=== PATIENT | male | born 1935 | race Caucasian/White ===

== ENCOUNTER 2016-12-15 10:53 | Emergency (ER) | payer MEDICARE, BC ==
--- NOTE | 2016-12-15 12:22 | EDM.PDOC ---
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 He has redness in the upper lid area. There appears to be a small pustule on the upper lid like a stye developing. Onset: Gradual Duration: Day(s): Location: Reports: Face Associated Symptoms: Reports: No Other Symptoms Eye Pain Score (Numeric/FACES): 2 - Related Data Allergies Allergy/AdvReac Type Severity Reaction Status Date / Time No Known Allergies Allergy Verified 12/15/16 11:55 Home Meds: Home Meds Levothyroxine [Synthroid] 88 mcg PO ACBREAKFAST 12/15/16 [History] predniSONE [Prednisone] 7.5 mg PO DAILY 12/15/16 [History] Past Medical History HEENT History: Reports: Cataract Respiratory History: Reports: Pulmonary Fibrosis Genitourinary History: Reports: Other (See Below) Other Genitourinary History: Prostate cancer Musculoskeletal History: Reports: Fracture Other Endocrine/Metabolic History: parotid surgery 1970 & 2001 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 - Past Surgical History HEENT Surgical History: Reports: Cataract Surgery GI Surgical History: Reports: Hernia, Inguinal Male Surgical History: Reports: Prostatectomy Social & Family History - Tobacco Use Smoking Status *Q: Never Smoker Second Hand Smoke Exposure: No - Caffeine Use Caffeine Use: Reports: Coffee, Tea - Alcohol Use Days Per Week of Alcohol Use: 0 - Recreational Drug Use Recreational Drug Use: No ED ROS GENERAL - Review of Systems Review Of Systems: See Below Constitutional: Reports: No Symptoms HEENT: Reports: Other ( swelling of the upper lid of the left eye. There appears to be a cellulitis of the upper lid and a possible stye developing. ) Respiratory: Reports: No Symptoms Cardiovascular: Reports: No Symptoms Endocrine: Reports: No Symptoms GI/Abdominal: Reports: No Symptoms : Reports: No Symptoms ED EXAM GENERAL W FULL EYE - Physical Exam Exam: See Below Text/Narrative:: pt arrived with swellin of the left upper lid and slight tenderness, He is on ppredisone and is concerned about infection. Exam Limited By: No Limitations General Appearance: Alert, Anxious, Other (pt has swelling of the lef upper lid. he may be forming a stye.) Ears: Normal TMs Nose: Normal Inspection Throat/Mouth: Normal Inspection Head: Atraumatic Neck: Normal Inspection Course - Vital Signs Last Recorded V/S: Last Vital Signs Temp 37.3 C 12/15/16 11:53 Pulse 84 12/15/16 11:53 Resp 14 12/15/16 11:53 BP 142/74 H 12/15/16 11:53 Pulse Ox 96 12/15/16 11:53 - Orders/Labs/Meds Labs: Laboratory Tests 12/15/16 12/15/16 Range/Units 12:25 12:25 WBC 4.7 (4.5-11.0) K/uL RBC 4.43 (4.30-5.90) M/uL Hgb 13.9 (12.0-15.0) g/dL Hct 42.5 (40.0-54.0) % MCV 96 (80-98) fL MCH 31 (27-31) pg MCHC 33 (32-36) % Plt Count 110 L (150-400) K/uL Add Manual Diff Yes Neutrophils % (Manual) 34 L (36-66) % Band Neutrophils % 3 L (5-11) % Lymphocytes % (Manual) 42 (24-44) % Monocytes % (Manual) 21 H (2-6) % Poikilocytosis Rare Stomatocytes Few Sodium 138 L (140-148) mmol/L Potassium 4.5 (3.6-5.2) mmol/L Chloride 103 (100-108) mmol/L Carbon Dioxide 31 (21-32) mmol/L Anion Gap 8.5 (5.0-14.0) mmol/L BUN 15 (7-18) mg/dL Creatinine 1.0 (0.8-1.3) mg/dL Est Cr Clr Drug Dosing TNP Estimated GFR (MDRD) > 60 (>60) Glucose 143 H (74-106) mg/dL Calcium 8.9 (8.5-10.1) mg/dL Departure - Departure Time of Disposition: 13:14 Disposition: Home, Self-Care 01 Condition: Fair Clinical Impression: Cellulitis of left eyelid - Discharge Information Referrals: Yannick Mejia MD [Primary Care Provider] - Forms: ED Department Discharge Care Plan Goals: moist warm packs to left eye frequently, keflex 500mg tid, rtc if increased problems.
[2016-12-15 14:02] VITALS: BP 142/74
== END 2016-12-15 13:10 | disposition home or self-care (01) ==
LOC: JP.ED 10:53
DX: H00.034 Abscess of left upper eyelid (principal); Z90.89 Acquired absence of other organs; Z98.49 Cataract extraction status, unspecified eye; Z79.899 Other long term (current) drug therapy
CPT/HCPCS: 36415; 80048; 85025; 99283; 99284

== ENCOUNTER 2019-01-20 13:37 | Emergency (ER) | payer MEDICARE, BC ==
[2019-01-20 14:56] VITALS: BP 152/80; PULSE 90
[2019-01-20] MEDS ORDERED: Oxymetazoline 0.05% Nasal Spray 30 ML Bottle NAS ONE (15:19)
--- NOTE | 2019-01-20 15:22 | EDM.PDOC ---
ED HPI GENERAL MEDICAL PROBLEM - General Chief Complaint: ENT Problem Stated Complaint: NOSE BLEED ALL MORNING Time Seen by Provider: 01/20/19 15:22 Source of Information: Reports: Patient History Limitations: Reports: No Limitations - History of Present Illness INITIAL COMMENTS - FREE TEXT/NARRATIVE: pt has had some bleeding from the rt nare for the past 4-5 hours. He has a history of low platlets because he is on chemo. He has a known mucoepidermal tumor. Onset: Today, Other (lasted about 4-5 hours. ) Duration: Hour(s): Location: Reports: Face Associated Symptoms: Reports: Other (pt had a nose bleed that would not stop. ) - Related Data Allergies Allergy/AdvReac Type Severity Reaction Status Date / Time No Known Allergies Allergy Verified 01/20/19 14:37 Home Meds: Home Meds Levothyroxine [Synthroid] 88 mcg PO ACBREAKFAST 12/15/16 [History] predniSONE [Prednisone] 7.5 mg PO DAILY 12/15/16 [History] Past Medical History HEENT History: Reports: Cataract Respiratory History: Reports: Pulmonary Fibrosis Genitourinary History: Reports: Other (See Below) Other Genitourinary History: Prostate cancer Musculoskeletal History: Reports: Fracture Other Endocrine/Metabolic History: parotid surgery 1970 & 2001 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 - Past Surgical History HEENT Surgical History: Reports: Cataract Surgery GI Surgical History: Reports: Hernia, Inguinal Male Surgical History: Reports: Prostatectomy Social & Family History - Tobacco Use Smoking Status *Q: Never Smoker - Caffeine Use Caffeine Use: Reports: Coffee, Tea ED ROS ENT - Review of Systems Review Of Systems: See Below Constitutional: Reports: Other (pt has a nose bleed. ) HEENT: Reports: Nosebleed Respiratory: Reports: No Symptoms Cardiovascular: Reports: No Symptoms Endocrine: Reports: No Symptoms GI/Abdominal: Reports: No Symptoms : Reports: No Symptoms Musculoskeletal: Reports: No Symptoms Skin: Reports: No Symptoms ED EXAM, ENT - Physical Exam Exam: See Below Text/Narrative:: pt arrived with a history of bleeding from the rt nare for about 5 hours. He had the nasal clamp on and when it was taken off there was very little bleeding. Exam Limited By: No Limitations General Appearance: Alert, Mild Distress Ears: Normal TMs Nose: Other ( clamp was removed and there was very little bleeding present. The clots were cleaned out and it was sprayed with afrin. He was watched and he did not have further bleeding. ) Mouth/Throat: Normal Inspection Head: Atraumatic Neck: Normal Inspection Respiratory/Chest: No Respiratory Distress Cardiovascular: Regular Rate, Rhythm Course - Vital Signs Last Recorded V/S: Last Vital Signs Temp 36.1 C 01/20/19 16:22 Pulse 90 01/20/19 16:22 Resp 16 01/20/19 16:22 BP 152/80 H 01/20/19 16:22 Pulse Ox 96 01/20/19 16:22 - Orders/Labs/Meds Labs: Laboratory Tests 01/20/19 01/20/19 01/20/19 Range/Units 15:30 15:30 15:30 WBC 78.9 H* (4.5-11.0) K/uL RBC 3.77 L (4.30-5.90) M/uL Hgb 11.4 L D (12.0-15.0) g/dL Hct 36.5 L (40.0-54.0) % MCV 97 (80-98) fL MCH 30 (27-31) pg MCHC 31 L (32-36) % Plt Count 66 L (150-400) K/uL Add Manual Diff Yes Neutrophils % (Manual) 52 (36-66) % Band Neutrophils % 12 H (5-11) % Lymphocytes % (Manual) 11 L (24-44) % Monocytes % (Manual) 25 H (2-6) % Polychromasia APTT 31.7 (27.0-36.0) sec Sodium 138 L (140-148) mmol/L Potassium 4.0 (3.6-5.2) mmol/L Chloride 98 L (100-108) mmol/L Carbon Dioxide 30 (21-32) mmol/L Anion Gap 14.0 (5.0-14.0) mmol/L BUN 19 H (7-18) mg/dL Creatinine 1.5 H (0.8-1.3) mg/dL Est Cr Clr Drug Dosing 39.20 mL/min Estimated GFR (MDRD) 45 L (>60) Glucose 154 H (74-106) mg/dL Calcium 9.9 (8.5-10.1) mg/dL Total Bilirubin 0.9 (0.2-1.0) mg/dL AST 156 H (15-37) U/L ALT 40 (12-78) U/L Alkaline Phosphatase 458 H (46-116) U/L Total Protein 8.5 H (6.4-8.2) g/dL Albumin 3.5 (3.4-5.0) g/dL Globulin 5.0 H (2.3-3.5) g/dL Albumin/Globulin Ratio 0.7 L (1.2-2.2) Meds: Medications Discontinued Medications Generic Name Dose Route Start Last Admin Trade Name Freq PRN Reason Stop Dose Admin Oxymetazoline HCl 1 ml 01/20/19 15:19 01/20/19 15:25 Nasal Decongestant [place] JIMMY 01/20/19 15:20 1 spray ONETIME ONE Administration - Re-Assessments/Exams Free Text/Narrative Re-Assessment/Exam: 01/20/19 16:21 pt had recent shots in [place] to stimulate his marrow. He was found to have a wbc of 78,000. His platlets were 60. He will use the afrin regularly for 3 days then stop. Departure - Departure Time of Disposition: 16:10 Disposition: Home, Self-Care 01 Condition: Fair Clinical Impression: Nosebleed, Temporary low platelet count - Discharge Information Instructions: Nosebleed, [id number] Referrals: Yannick Mejia MD [Primary Care Provider] - Forms: ED Department Discharge Care Plan Goals: cool mist humidifier at the bedside, avoid working in todd areas. Afrin nasal spray tid for the next 3 days then stop. send a copy of his lab work with him so he can call his oncologist.
== END 2019-01-20 16:26 | disposition home or self-care (01) ==
LOC: JP.ED 13:37
DX: R04.0 Epistaxis (principal); D69.6 Thrombocytopenia, unspecified; Z79.899 Other long term (current) drug therapy
CPT/HCPCS: 36415; 80053; 85025; 85730; 99283; A9270; 99282

== ENCOUNTER 2021-01-15 12:03 | Emergency (ER) | payer MEDICARE, BC ==
[2021-01-15] MEDS ORDERED: Sodium Chloride 0.9% 10 ML Syringe FLUSH PRN (12:36)
--- NOTE | 2021-01-15 12:43 | EDM.PDOC ---
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 Surgery was not advised this last time so he has been managed non-surgically. He is not on any anticoagulants. He has coughed up some clots in the past, but today he brought up a lot of fresh blood that is much more than ever before. He is unable to open his mouth more than a little due to his original surgery on that L parotid justina or. His breathing is now the same as usual without SOB. His CA tx's were at [facility] in [place]. Onset: Today, Sudden Onset Date: 01/15/21 Duration: Minutes: Location: Reports: Neck (? throat) Quality: Reports: Other (no pain reported) Severity: Severe Improves with: Reports: Other (time) Worsens with: Reports: Other (unknown) Context: Reports: Other (see HPI) Associated Symptoms: Reports: Malaise. 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: Reports: Other (see below) (none) - Related Data Allergies Allergy/AdvReac Type Severity Reaction Status Date / Time No Known Allergies Allergy Verified 01/15/21 12:09 Home Meds: Home Meds Levothyroxine [Synthroid] 88 mcg PO ACBREAKFAST 12/15/16 [History] predniSONE [Prednisone] 7.5 mg PO DAILY 12/15/16 [History] Past Medical History HEENT History: Reports: Cataract Respiratory History: Reports: Pulmonary Fibrosis Gastrointestinal History: Reports: Chronic Constipation Genitourinary History: Reports: Other (See Below) Other Genitourinary History: Prostate cancer Musculoskeletal History: Reports: Fracture Other Endocrine/Metabolic History: parotid surgery 1970 & 2001 Hematologic History: Reports: Other (See Below) 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 Oncologic (Cancer) History: Reports: Prostate, Other (See Below) - Past Surgical History Head Surgeries/Procedures: Reports: None HEENT Surgical History: Reports: Cataract Surgery, Other (See Below) Other HEENT Surgeries/Procedures: radiation to throat Respiratory Surgical History: Reports: None GI Surgical History: Reports: Hernia, Inguinal Male Surgical History: Reports: Prostatectomy Endocrine Surgical History: Reports: None Musculoskeletal Surgical History: Reports: None Oncologic Surgical History: Reports: None Dermatological Surgical History: Reports: None Social & Family History - Caffeine Use Caffeine Use: Reports: Coffee, Tea ED ROS ENT - Review of Systems Review Of Systems: See Below Constitutional: Reports: Malaise HEENT: Reports: Other (? bleeding from throat, chronic inability to open his mouth) Respiratory: Reports: No Symptoms Cardiovascular: Reports: Lightheadedness GI/Abdominal: Reports: No Symptoms : Reports: No Symptoms Musculoskeletal: Reports: No Symptoms Skin: Reports: No Symptoms Neurological: Reports: No Symptoms ED EXAM, ENT - Physical Exam Exam: See Below Exam Limited By: No Limitations General Appearance: Alert, WD/WN, No Apparent Distress Eye Exam: Bilateral Eye: Normal Inspection Ears: Normal External Exam, Normal Canal, Hearing Grossly Normal, Normal TMs Nose: Normal Inspection, No Blood Mouth/Throat: Normal Lips, Other (only able to open mouth about 1/2 inch. Not able to visualize his throat. ) Head: Atraumatic, Normocephalic Neck: Normal Inspection Respiratory/Chest: No Respiratory Distress, Lungs Clear, Normal Breath Sounds, No Accessory Muscle Use Cardiovascular: Regular Rate, Rhythm, No Edema GI/Abdominal: Normal Bowel Sounds, Soft, Non-Tender. No: Distended Extremities: Normal Inspection Neurological: Alert, Oriented, CN II-XII Intact, Normal Cognition, No Motor/Sensory Deficits Psychiatric: Normal Affect, Normal Mood Skin: Warm, Dry, Intact, Normal Color, No Rash Course - Vital Signs Text/Narrative:: Accepted in transfer by Dr. Tanner, [facility], at 1409h Last Recorded V/S: Last Vital Signs Temp 36.4 C 01/15/21 12:13 Pulse 103 H 01/15/21 13:12 Resp 16 01/15/21 12:13 BP 87/57 L 01/15/21 13:12 Pulse Ox 99 01/15/21 12:13 - Orders/Labs/Meds Orders: Active Orders 24 hr Category Date Time Status Orthostatic Vital Signs [RC] ASDIRECTED Care 01/15/21 12:36 Active Lactated Ringers [Ringers, Lactated] 1,000 ml Med 01/15/21 13:14 Active IV BOLUS Sodium Chloride 0.9% [Saline Flush] Med 01/15/21 12:36 Active 10 ml FLUSH ASDIRECTED PRN Saline Lock Insert [OM.PC] Routine Oth 01/15/21 12:36 Ordered Medication Orders Lactated Ringer's (Ringers, Lactated) 1,000 mls @ 1,000 mls/hr IV BOLUS ONE Stop: 01/15/21 14:13 Last Admin: 01/15/21 13:20 Dose: 1,000 mls/hr Documented by: REANNA Sodium Chloride (Sodium Chloride 0.9% 10 Ml Syringe) 10 ml FLUSH ASDIRECTED PRN PRN Reason: Keep Vein Open Last Admin: 01/15/21 13:32 Dose: 10 ml Documented by: REANNA Labs: Laboratory Tests 01/15/21 Range/Units 12:36 WBC 5.9 (4.5-11.0) K/uL RBC 3.25 L (4.30-5.90) M/uL Hgb 9.5 L (12.0-15.0) g/dL Hct 30.7 L (40.0-54.0) % MCV 95 (80-98) fL MCH 29 (27-31) pg MCHC 31 L (32-36) % Plt Count 211 (150-400) K/uL Meds: Medications Generic Name Dose Route Start Last Admin Trade Name Freq PRN Reason Stop Dose Admin Lactated Ringer's 1,000 mls @ 1,000 mls/hr 01/15/21 13:14 01/15/21 13:20 Ringers, Lactated IV 01/15/21 14:13 1,000 mls/hr BOLUS ONE Administration Sodium Chloride 10 ml 01/15/21 12:36 01/15/21 13:32 Sodium Chloride 0.9% 10 Ml Syringe FLUSH 10 ml ASDIRECTED PRN Administration Keep Vein Open Departure - Departure Time of Disposition: 14:20 Disposition: DC/Tfer to Acute Hospital 02 Condition: Serious Clinical Impression: Oropharyngeal bleeding, Orthostatic hypotension - Discharge Information Referrals: PCP,None [Primary Care Provider] - Forms: ED Department Discharge Sepsis Event Note (ED) - Evaluation Sepsis Screening Result: No Definite Risk - Focused Exam Vital Signs: Vital Signs Temp Pulse Resp BP Pulse Ox 01/15/21 13:12 103 H 87/57 L 01/15/21 13:10 60 114/58 L 01/15/21 13:09 93 115/57 L 01/15/21 12:13 36.4 C 93 16 148/85 H 99 01/15/21 12:09 36.4 C 93 16 148/85 H 99 - My Orders Last 24 Hours: My Active Orders 01/15/21 12:36 Orthostatic Vital Signs [RC] ASDIRECTED Sodium Chloride 0.9% [Saline Flush] 10 ml FLUSH ASDIRECTED PRN Saline Lock Insert [OM.PC] Routine 01/15/21 13:14 Lactated Ringers [Ringers, Lactated] 1,000 ml IV BOLUS - Assessment/Plan Last 24 Hours: My Active Orders 01/15/21 12:36 Orthostatic Vital Signs [RC] ASDIRECTED Sodium Chloride 0.9% [Saline Flush] 10 ml FLUSH ASDIRECTED PRN Saline Lock Insert [OM.PC] Routine 01/15/21 13:14 Lactated Ringers [Ringers, Lactated] 1,000 ml IV BOLUS
[2021-01-15] MEDS ORDERED: Lactated Ringers 1,000 ML IV ONE (13:14)
[2021-01-15] MEDS ORDERED: Lactated Ringers 1,000 ML IV SCH (14:30)
[2021-01-15 14:37] VITALS: PULSE 85
[2021-01-15] MEDS ORDERED: Pantoprazole 40 MG Vial IVPUSH SCH (14:45)
[2021-01-15 14:58] VITALS: BP 135/68
== END 2021-01-15 17:21 ==
LOC: JP.ED 12:03
DX: R04.1 Hemorrhage from throat (principal); I95.1 Orthostatic hypotension; Z79.899 Other long term (current) drug therapy
CPT/HCPCS: 36415; 85027; 96374; 99285; C9113; J7120

== ENCOUNTER 2021-01-17 07:47 | Inpatient (IN) | payer MEDICARE, BC ==
[2021-01-17] MEDS ORDERED: Sodium Chloride 0.9% 10 ML Syringe FLUSH PRN (09:20)
[2021-01-17] MEDS ORDERED: Sodium Chloride 0.9% 1,000 ML IV SCH (09:30)
--- NOTE | 2021-01-17 09:31 | EDM.PDOC ---
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 His oral intake has been poor in general. He had a bleed yesterday and he was sent to [place] and it was felt the bleeding was from the nasal pharnx. He was sent home and had bleeding in the nite that was heavy. He had a 9 gram hg in [place]. Onset: Today Duration: Hour(s): Location: Reports: Head, Face Associated Symptoms: Reports: No Other Symptoms - Related Data Allergies Allergy/AdvReac Type Severity Reaction Status Date / Time No Known Allergies Allergy Verified 01/17/21 08:07 Home Meds: Home Meds Levothyroxine [Synthroid] 88 mcg PO ACBREAKFAST 12/15/16 [History] predniSONE [Prednisone] 7.5 mg PO DAILY 12/15/16 [History] Past Medical History HEENT History: Reports: Cataract Respiratory History: Reports: Pulmonary Fibrosis Gastrointestinal History: Reports: Chronic Constipation Genitourinary History: Reports: Other (See Below) Other Genitourinary History: Prostate cancer Musculoskeletal History: Reports: Fracture Other Endocrine/Metabolic History: parotid surgery 1970 & 2001 Hematologic History: Reports: Other (See Below) 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 Oncologic (Cancer) History: Reports: Prostate, Other (See Below) - Past Surgical History Head Surgeries/Procedures: Reports: None HEENT Surgical History: Reports: Cataract Surgery, Other (See Below) Other HEENT Surgeries/Procedures: radiation to throat Respiratory Surgical History: Reports: None GI Surgical History: Reports: Hernia, Inguinal Male Surgical History: Reports: Prostatectomy Endocrine Surgical History: Reports: None Musculoskeletal Surgical History: Reports: None Oncologic Surgical History: Reports: None Dermatological Surgical History: Reports: None Social & Family History - Tobacco Use Tobacco Use Status *Q: Never Tobacco User - Caffeine Use Caffeine Use: Reports: Coffee, Tea ED ROS ENT - Review of Systems Review Of Systems: See Below Constitutional: Reports: Fatigue, Other (pt was confused and very weak during the nite. 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 ) Respiratory: Reports: No Symptoms Cardiovascular: Reports: No Symptoms Endocrine: Reports: No Symptoms GI/Abdominal: Reports: No Symptoms : Reports: No Symptoms Musculoskeletal: Reports: No Symptoms Skin: Reports: No Symptoms ED EXAM, ENT - Physical Exam Exam: See Below Text/Narrative:: pt arrived with a history of sig nasalpharngeal bleeding during the nite. was concerned because he seemed less responsive for a while. He is alert at this point. His bleeding has stopped. He was sent to [facility] because of bleeding. He did not have anything done. Exam Limited By: No Limitations General Appearance: Alert, No Apparent Distress, Lethargic Ears: Normal TMs, Other ( Pt has a large parotid swelling and now thios has become spread over his left facial area. ) Nose: Other (Pt has been bleeding from the left nostril and it has now stopped. This was not disturbed at this point. ) Mouth/Throat: Trismus, Other (pt is bearly able to open his mouth at this point. ) Head: Atraumatic, Other ( left facial deformity from the tumor. ) Neck: Lymphadenopathy (L) Respiratory/Chest: No Respiratory Distress Cardiovascular: Regular Rate, Rhythm GI/Abdominal: Soft, Non-Tender (Male) Exam: Other (pt has not voided for 24 hours) Rectal (Males) Exam: Deferred Back: Normal Inspection Extremities: Normal Inspection Neurological: Alert, Oriented, Normal Cognition, Slow to Respond Course - Vital Signs Last Recorded V/S: Last Vital Signs Temp 36.9 C 01/18/21 07:20 Pulse 67 01/18/21 07:20 Resp 18 01/18/21 07:20 BP 151/68 H 01/18/21 07:20 Pulse Ox 95 01/18/21 07:20 - Orders/Labs/Meds Orders: Active Orders 24 hr Category Date Time Status PATIENT RETYPE [BBK] Stat Lab 01/17/21 08:30 Results RED BLOOD CELLS LP [BBK] Stat Lab 01/17/21 08:30 Results TYPE AND SCREEN [BBK] Stat Lab 01/17/21 08:30 Results Sodium Chloride 0.9% [Saline Flush] Med 01/17/21 09:20 Active 10 ml FLUSH ASDIRECTED PRN Saline Lock Insert [OM.PC] Routine Oth 01/17/21 09:20 Ordered Medication Orders Acetaminophen (Acetaminophen 325 Mg Tab) 650 mg PO Q4H PRN PRN Reason: Pain (Mild 1-3)/fever Sodium Chloride (Normal Saline) 1,000 mls @ 125 mls/hr IV ASDIRECTED MARGARITA Last Admin: 01/18/21 04:37 Dose: 125 mls/hr Documented by: CIARRA Levothyroxine Sodium (Levothyroxine 88 Mcg Tab) 88 mcg PO ACBREAKFAST MARGARITA Lorazepam (Lorazepam 2 Mg/Ml Sdv) 0.5 mg IVPUSH Q4H PRN PRN Reason: Nausea/Vomiting Magnesium Hydroxide (Magnesium Hydroxide 400 Mg/5 Ml Susp 30 Ml Cup) 30 ml PO Q12H PRN PRN Reason: Constipation Melatonin (Melatonin 3 Mg Tab) 9 mg PO BEDTIME PRN PRN Reason: Sleep Ondansetron HCl (Ondansetron 4 Mg/2 Ml Sdv) 4 mg IV Q6H PRN PRN Reason: Nausea/Vomiting Ondansetron HCl (Ondansetron 4 Mg Tab.Dis) 4 mg PO Q6H PRN PRN Reason: Nausea able to take PO Oxycodone HCl (Oxycodone 5 Mg Tab) 5 - 10 mg PO Q4H PRN PRN Reason: Pain Prednisone (Prednisone 5 Mg Tab) 7.5 mg PO DAILY [facility] Senna/Docusate Sodium (Docusate Sodium/Sennosides 50-8.6 Mg Tab) 1 tab PO BID PRN PRN Reason: Constipation Sodium Chloride (Sodium Chloride 0.9% 10 Ml Syringe) 10 ml FLUSH ASDIRECTED PRN PRN Reason: Keep Vein Open Last Admin: 01/17/21 09:48 Dose: 10 ml Documented by: PITA Labs: Laboratory Tests 01/17/21 01/17/21 01/17/21 Range/Units 08:30 08:30 08:30 WBC 26.6 H (4.5-11.0) K/uL RBC 2.38 L (4.30-5.90) M/uL Hgb 7.0 L D (12.0-15.0) g/dL Hct 22.2 L (40.0-54.0) % MCV 93 (80-98) fL MCH 29 (27-31) pg MCHC 32 (32-36) % Plt Count 180 (150-400) K/uL Add Manual Diff Yes Neutrophils % (Manual) 80 H (36-66) % Band Neutrophils % 6 (5-11) % Lymphocytes % (Manual) 3 L (24-44) % Metamyelocytes % 7 % Myelocytes % 3 % Blast Cells % 1 % Nucleated RBCs 1 Polychromasia PT (9.5-12.0) sec INR (0.80-1.20) APTT (27.0-36.0) sec Sodium 141 (140-148) mmol/L Potassium 4.3 (3.6-5.2) mmol/L Chloride 104 (100-108) mmol/L Carbon Dioxide 25 (21-32) mmol/L Anion Gap 12.0 (5.0-14.0) mmol/L BUN 27 H (7-18) mg/dL Creatinine 2.5 H D (0.8-1.3) mg/dL Est Cr Clr Drug Dosing 19.76 mL/min Estimated GFR (MDRD) 25 L (>60) Glucose 147 H (74-106) mg/dL Calcium 8.0 L D (8.5-10.1) mg/dL Total Bilirubin 0.8 (0.2-1.0) mg/dL AST 405 H D (15-37) U/L ALT 468 H (12-78) U/L Alkaline Phosphatase 78 D (46-116) U/L Total Protein 6.4 (6.4-8.2) g/dL Albumin 2.4 L (3.4-5.0) g/dL Globulin 4.0 H (2.3-3.5) g/dL Albumin/Globulin Ratio 0.6 L (1.2-2.2) Blood Type B POSITIVE Gel Antibody Screen Negative Crossmatch See Detail 01/17/21 01/17/21 Range/Units 09:24 09:25 WBC (4.5-11.0) K/uL RBC (4.30-5.90) M/uL Hgb (12.0-15.0) g/dL Hct (40.0-54.0) % MCV (80-98) fL MCH (27-31) pg MCHC (32-36) % Plt Count (150-400) K/uL Add Manual Diff Neutrophils % (Manual) (36-66) % Band Neutrophils % (5-11) % Lymphocytes % (Manual) (24-44) % Metamyelocytes % % Myelocytes % % Blast Cells % % Nucleated RBCs Polychromasia PT 12.7 H (9.5-12.0) sec INR 1.17 (0.80-1.20) APTT 27.6 (27.0-36.0) sec Sodium (140-148) mmol/L Potassium (3.6-5.2) mmol/L Chloride (100-108) mmol/L Carbon Dioxide (21-32) mmol/L Anion Gap (5.0-14.0) mmol/L BUN (7-18) mg/dL Creatinine (0.8-1.3) mg/dL Est Cr Clr Drug Dosing mL/min Estimated GFR (MDRD) (>60) Glucose (74-106) mg/dL Calcium (8.5-10.1) mg/dL Total Bilirubin (0.2-1.0) mg/dL AST (15-37) U/L ALT (12-78) U/L Alkaline Phosphatase (46-116) U/L Total Protein (6.4-8.2) g/dL Albumin (3.4-5.0) g/dL Globulin (2.3-3.5) g/dL Albumin/Globulin Ratio (1.2-2.2) Blood Type Gel Antibody Screen Crossmatch Meds: Medications Generic Name Dose Route Start Last Admin Trade Name Freq PRN Reason Stop Dose Admin Acetaminophen 650 mg 01/17/21 14:58 Acetaminophen 325 Mg Tab PO Q4H PRN Pain (Mild 1-3)/fever Sodium Chloride 1,000 mls @ 125 mls/hr 01/17/21 14:58 01/18/21 04:37 Normal Saline IV 125 mls/hr ASDIRECTED MARGARITA Administration Levothyroxine Sodium 88 mcg 01/18/21 07:30 Levothyroxine 88 Mcg Tab PO ACBREAKFAST MARGARITA Lorazepam 0.5 mg 01/17/21 14:58 Lorazepam 2 Mg/Ml Sdv IVPUSH Q4H PRN Nausea/Vomiting Magnesium Hydroxide 30 ml 01/17/21 14:58 Magnesium Hydroxide 400 Mg/5 Ml Susp 30 Ml Cup PO Q12H PRN Constipation Melatonin 9 mg 01/17/21 14:58 Melatonin 3 Mg Tab PO BEDTIME PRN Sleep Ondansetron HCl 4 mg 01/17/21 14:58 Ondansetron 4 Mg/2 Ml Sdv IV Q6H PRN Nausea/Vomiting Ondansetron HCl 4 mg 01/17/21 14:58 Ondansetron 4 Mg Tab.Dis PO Q6H PRN Nausea able to take PO Oxycodone HCl 5 - 10 mg 01/17/21 14:58 Oxycodone 5 Mg Tab PO Q4H PRN Pain Prednisone 7.5 mg 01/18/21 09:00 Prednisone 5 Mg Tab PO DAILY MARGARITA Senna/Docusate Sodium 1 tab 01/17/21 14:58 Docusate Sodium/Sennosides 50-8.6 Mg Tab PO BID PRN Constipation Sodium Chloride 10 ml 01/17/21 09:20 01/17/21 09:48 Sodium Chloride 0.9% 10 Ml Syringe FLUSH 10 ml ASDIRECTED PRN Administration Keep Vein Open Discontinued Medications Generic Name Dose Route Start Last Admin Trade Name Freq PRN Reason Stop Dose Admin Sodium Chloride 1,000 mls @ 200 mls/hr 01/17/21 09:30 01/17/21 09:47 Normal Saline IV 200 mls/hr ASDIRECTED MARGARITA Administration - Re-Assessments/Exams Free Text/Narrative Re-Assessment/Exam: 01/17/21 13:18 pt has a wbc of 26,000. He had a 5000 wbc on . He does not have a fever. He has been in [place] for several hours and has not had further bleeding. His hg has dropped to 7 and he will be admitted and transfused. A cat scan of the maxifacial area was obtained and there is niot an obvious abcess. 01/17/21 13:21 Departure - Departure Time of Disposition: 13:22 Disposition: Admitted As Inpatient 67 Condition: Fair Clinical Impression: Anemia, Nosebleed, Dehydration, Parotid adenoma - Discharge Information Sepsis Event Note (ED) - Evaluation Sepsis Screening Result: No Definite Risk - My Orders Last 24 Hours: My Active Orders 01/17/21 08:30 PATIENT RETYPE [BBK] Stat RED BLOOD CELLS LP [BBK] Stat TYPE AND SCREEN [BBK] Stat 01/17/21 09:20 Sodium Chloride 0.9% [Saline Flush] 10 ml FLUSH ASDIRECTED PRN Saline Lock Insert [OM.PC] Routine - Assessment/Plan Last 24 Hours: My Active Orders 01/17/21 08:30 PATIENT RETYPE [BBK] Stat RED BLOOD CELLS LP [BBK] Stat TYPE AND SCREEN [BBK] Stat 01/17/21 09:20 Sodium Chloride 0.9% [Saline Flush] 10 ml FLUSH ASDIRECTED PRN Saline Lock Insert [OM.PC] Routine
--- NOTE | 2021-01-17 13:16 | CRLCT ---
For Patients: As a result of the 21st Century Cures Act, medical imaging exams and procedure reports are released immediately into your electronic medical record. You may view this report before your referring provider. If you have questions, please contact your health care provider. INDICATION: Nasopharyngeal bleeding. History of parotid cancer. TECHNIQUE: Noncontrast CT images were acquired through the facial bones. COMPARISON: None. FINDINGS: Beam hardening artifact secondary to dental amalgam limits evaluation of the oral cavity and adjacent structures. Motion artifact also limits evaluation. Postsurgical changes in the left parotid and left newspaper editor managing spaces with multiple surgical clips visualized medial to the left mandibular ramus. Large soft tissue attenuation associated with obscuration of planes within the left newspaper editor managing, left parapharyngeal, and deep left parotid spaces. Mild narrowing of the oropharyngeal airway. Asymmetric soft tissue fullness within the left nasopharynx (series 3, image 35). There is osteolysis of the left superior alveolar ridge posteriorly as well as the left petrous apex and adjacent left basisphenoid. Moderately severe mucosal thickening in the left maxillary sinus. Mild mucosal thickening in the left greater than right ethmoid and sphenoid sinuses. Severe opacification of the left mastoid air cells and left middle ear cavity. The left external auditory canal is severely narrowed. The globes, extraocular muscles, and optic nerve sheath complexes are symmetric. Thinning of the ocular lenses. Limited images through the brain demonstrate diffuse cerebral volume loss. IMPRESSION: 1. Large soft tissue attenuation associated with obscuration of fat planes in the left parapharyngeal, left newspaper editor managing, and deep left parotid spaces. Asymmetric fullness of the left nasopharynx with osteolysis of the adjacent left skullbase and left petrous apex. Findings may represent underlying neoplasm and/or posttreatment sequelae, though evaluation is limited on this noncontrast CT. Comparison with prior exams, if available, would be helpful. Contrast-enhanced CT and/or MRI are offered for further evaluation as clinically warranted. 2. Severe opacification of the left mastoid air cells and left middle ear cavity. The left external auditory canal is severely narrowed. Please note that all CT scans at this facility use dose modulation, iterative reconstruction, and/or weight-based dosing when appropriate to reduce radiation dose to as low as reasonably achievable. Dictated by Pal Peters MD @ 01/18/2021 11:21:[address] Pal Peters @ Jan 18 2021 11:21AM
--- NOTE | 2021-01-17 14:31 | PCM.HP.2 ---
H&P History of Present Illness - General Date of Service: 01/17/21 Admit Problem/Dx: Admission Diagnosis/Problem Admission Diagnosis/Problem Acute kidney injury Source of Information: Patient, Family, Provider History Limitations: Reports: No Limitations - History of Present Illness Initial Comments - Free Text/Narative: CC: rough night HPI: Valentino presents to the emergency room today with weakness, poor oral intake as well as orthostatic dizziness. He was seen here a couple of days ago because of melena and concern for oropharyngeal bleeding versus gastrointestinal bl eeding. No ICU beds were available so he was sent to [place] for further evaluation. They felt that he had oropharyngeal bleeding which had appeared to stop at that point and he was sent home. Shortly after getting home the bleeding returned. He had blood coming out of his left nare as well as draining into the back of his throat. This persisted much of the night and did finally stop this morning. Because of his weakness and dizziness with standing he was brought in for evaluation. He reports no pain in sinuses, mouth or cheek currently. He does cough/have to clear his throat when he tries to drink liquids but does not have odynophagia. No shortness of breath or cough. No abdominal pain or nausea. He has not urinated since last night sometime. Oral intake has been poor. He is having difficulty walking because of the orthostatic dizziness. Work-up in the emergency room revealed a white blood cell count of 26,000 and hemoglobin of 7 (was 9 yesterday). CT scan of the maxillofacial area revealed significant invasion of the parotid tumor with no comparisons available. No obv ious evidence for abscess or other acute pathology at this time. Patient was also noted to have a creatinine of 2.5. He will be admitted for management of acute kidney injury and anemia due to blood loss. - Related Data Allergies/Adverse Reactions: Allergies Allergy/AdvReac Type Severity Reaction Status Date / Time No Known Allergies Allergy Verified 01/17/21 08:07 Home Medications: Home Meds Levothyroxine [Synthroid] 88 mcg PO ACBREAKFAST 12/15/16 [History] predniSONE [Prednisone] 7.5 mg PO DAILY 12/15/16 [History] Past Medical History HEENT History: Reports: Cataract Respiratory History: Reports: Pulmonary Fibrosis Gastrointestinal History: Reports: Chronic Constipation Genitourinary History: Reports: Other (See Below) Other Genitourinary History: Prostate cancer Musculoskeletal History: Reports: Fracture Other Endocrine/Metabolic History: parotid surgery 1970 & 2001 Hematologic History: Reports: Other (See Below) 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 Oncologic (Cancer) History: Reports: Prostate, Other (See Below) - Past Surgical History Head Surgeries/Procedures: Reports: None HEENT Surgical History: Reports: Cataract Surgery, Other (See Below) Other HEENT Surgeries/Procedures: radiation to throat Respiratory Surgical History: Reports: None GI Surgical History: Reports: Hernia, Inguinal Male Surgical History: Reports: Prostatectomy Endocrine Surgical History: Reports: None Musculoskeletal Surgical History: Reports: None Oncologic Surgical History: Reports: None Dermatological Surgical History: Reports: None Social & Family History - Family History Cardiac: Denies: CAD - Tobacco Use Tobacco Use Status *Q: Never Tobacco User - Caffeine Use Caffeine Use: Reports: Coffee, Tea - Alcohol Use Alcohol Use History: No H&P Review of Systems - Review of Systems: Review Of Systems: See Below Free Text/Narrative: A complete 12 point review of systems was obtained. Pertinent positives and negatives are noted in the history of present illness. All other systems were reviewed and were negative except as noted. Exam - Exam Exam: See Below - Vital Signs Vital Signs: Last Vital Signs Temp 36.0 C L 01/17/21 08:16 Pulse 98 01/17/21 10:10 Resp 17 01/17/21 10:10 BP 122/49 L 01/17/21 10:10 Pulse Ox 98 01/17/21 10:10 Weight: 63.503 kg - Exam Quality Assessment: No: Supplemental Oxygen General: Alert, Oriented, Cooperative, Mild Distress HEENT: Conjunctiva Clear, Other (swelling left cheek. No warmth. ). No: Mucosa Moist & [place] (dry), Scleral Icterus Neck: Supple, Trachea Midline. No: Lymphadenopathy Lungs: Clear to Auscultation, Normal Respiratory Effort Cardiovascular: Regular Rate, Regular Rhythm, Systolic Murmur GI/Abdominal Exam: Normal Bowel Sounds, Soft, Non-Tender, No Distention Back Exam: Normal Inspection, Full Range of Motion Extremities: No Pedal Edema. No: Increased Warmth Peripheral Pulses: 2+: Dorsalis Pedis (L), Dorsalis Pedis (R) Skin: Warm, Dry Neuro Extensive - Mental Status: Alert, Oriented x3, Nl Response to Commands Neuro Extensive - Motor, Sensory, Reflexes: No: Abnormal Motor, Tremor Psychiatric: Alert, Normal Affect - Patient Data Lab Results Last 24 hrs: Laboratory Results - last 24 hr 01/17/21 01/17/21 01/17/21 Range/Units 08:30 08:30 08:30 WBC 26.6 H (4.5-11.0) K/uL RBC 2.38 L (4.30-5.90) M/uL Hgb 7.0 L D (12.0-15.0) g/dL Hct 22.2 L (40.0-54.0) % MCV 93 (80-98) fL MCH 29 (27-31) pg MCHC 32 (32-36) % Plt Count 180 (150-400) K/uL Add Manual Diff Yes Neutrophils % (Manual) 80 H (36-66) % Band Neutrophils % 6 (5-11) % Lymphocytes % (Manual) 3 L (24-44) % Metamyelocytes % 7 % Myelocytes % 3 % Blast Cells % 1 % Nucleated RBCs 1 Polychromasia PT (9.5-12.0) sec INR (0.80-1.20) APTT (27.0-36.0) sec Sodium 141 (140-148) mmol/L Potassium 4.3 (3.6-5.2) mmol/L Chloride 104 (100-108) mmol/L Carbon Dioxide 25 (21-32) mmol/L Anion Gap 12.0 (5.0-14.0) mmol/L BUN 27 H (7-18) mg/dL Creatinine 2.5 H D (0.8-1.3) mg/dL Est Cr Clr Drug Dosing 19.76 mL/min Estimated GFR (MDRD) 25 L (>60) Glucose 147 H (74-106) mg/dL Calcium 8.0 L D (8.5-10.1) mg/dL Total Bilirubin 0.8 (0.2-1.0) mg/dL AST 405 H D (15-37) U/L ALT 468 H (12-78) U/L Alkaline Phosphatase 78 D (46-116) U/L Total Protein 6.4 (6.4-8.2) g/dL Albumin 2.4 L (3.4-5.0) g/dL Globulin 4.0 H (2.3-3.5) g/dL Albumin/Globulin Ratio 0.6 L (1.2-2.2) Blood Type B POSITIVE Gel Antibody Screen Negative Crossmatch See Detail 01/17/21 01/17/21 Range/Units 09:24 09:25 WBC (4.5-11.0) K/uL RBC (4.30-5.90) M/uL Hgb (12.0-15.0) g/dL Hct (40.0-54.0) % MCV (80-98) fL MCH (27-31) pg MCHC (32-36) % Plt Count (150-400) K/uL Add Manual Diff Neutrophils % (Manual) (36-66) % Band Neutrophils % (5-11) % Lymphocytes % (Manual) (24-44) % Metamyelocytes % % Myelocytes % % Blast Cells % % Nucleated RBCs Polychromasia PT 12.7 H (9.5-12.0) sec INR 1.17 (0.80-1.20) APTT 27.6 (27.0-36.0) sec Sodium (140-148) mmol/L Potassium (3.6-5.2) mmol/L Chloride (100-108) mmol/L Carbon Dioxide (21-32) mmol/L Anion Gap (5.0-14.0) mmol/L BUN (7-18) mg/dL Creatinine (0.8-1.3) mg/dL Est Cr Clr Drug Dosing mL/min Estimated GFR (MDRD) (>60) Glucose (74-106) mg/dL Calcium (8.5-10.1) mg/dL Total Bilirubin (0.2-1.0) mg/dL AST (15-37) U/L ALT (12-78) U/L Alkaline Phosphatase (46-116) U/L Total Protein (6.4-8.2) g/dL Albumin (3.4-5.0) g/dL Globulin (2.3-3.5) g/dL Albumin/Globulin Ratio (1.2-2.2) Blood Type Gel Antibody Screen Crossmatch Result Diagrams: 01/17/21 08:30 01/17/21 08:30 Imaging Impressions Last 24 hrs: CT scan maxillofacial-these images were personally reviewed-there is a large in filtrating mass originating from the area where the parotid gland should be. This extends superiorly towards the middle ear as well as inferiorly to the floor of the mouth. This does displace the airway slightly to the left. Sepsis Event Note - Evaluation Sepsis Screening Result: No Definite Risk - Focused Exam Vital Signs: Vital Signs Temp Pulse Resp BP Pulse Ox 01/17/21 10:10 98 17 122/49 L 98 01/17/21 09:30 94 18 125/56 L 96 01/17/21 08:16 36.0 C L 98 14 125/51 L 98 *Q Meaningful Use (ADM) - VTE *Q VTE Pharmacological Contraindications *Q: Risk of Bleeding - VTE Risk Assess *Q Each Risk Factor Represents 1 Point: None Total Score 1 Point Risk Factors: 0 Each Risk Factor Represents 2 Points: Malignancy (present or previous) Total Score 2 Point Risk Factors: 2 Each Risk Factor Represents 3 Points: Age 75 Years or Greater Total Score 3 Point Risk Factors: 3 Each Risk Factor Represents 5 Points: None Total Score 5 Point Risk Factors: 0 Venous Thromboembolism Risk Factor Score *Q: 5 - Problem List (1) Acute kidney injury SNOMED Code(s): 16564238, 10021273 ICD Code: N17.9 - ACUTE KIDNEY FAILURE, UNSPECIFIED Status: Acute (2) Oropharyngeal bleeding SNOMED Code(s): 511262211, 277886605 ICD Code: J39.2 - OTHER DISEASES OF PHARYNX Status: Acute (3) Anemia due to blood loss, acute SNOMED Code(s): 734348686 ICD Code: D62 - ACUTE POSTHEMORRHAGIC ANEMIA Status: Acute (4) Dehydration SNOMED Code(s): 58443349 ICD Code: E86.0 - DEHYDRATION Status: Acute (5) Orthostatic hypotension SNOMED Code(s): 17106239 ICD Code: I95.1 - ORTHOSTATIC HYPOTENSION Status: Acute (6) Primary parotid gland malignancy SNOMED Code(s): 719979924 ICD Code: C07 - MALIGNANT NEOPLASM OF PAROTID GLAND Status: Chronic Problem List Initiated/Reviewed/Updated: Yes Orders Last 24hrs: Active Orders 24 hr Category Date Time Status Patient Status Manage Transfer [TRANSFER] Routine ADT 01/17/21 14:21 Ordered PATIENT RETYPE [BBK] Stat Lab 01/17/21 08:30 Results RED BLOOD CELLS LP [BBK] Stat Lab 01/17/21 08:30 Results TYPE AND SCREEN [BBK] Stat Lab 01/17/21 08:30 Results UA W/MICROSCOPIC [URIN] Urgent Lab 01/17/21 08:19 Ordered Saline Lock Insert [OM.PC] Routine Oth 01/17/21 09:20 Ordered Resuscitation Status Routine Resus Stat 01/17/21 14:22 Ordered Assessment/Plan Comment:: ASSESSMENT AND PLAN - Acute kidney injury-secondary to poor intake and resulting dehydration that is a complication of his cancer as discussed below. Creatinine is quite elevated from baseline. He has orthostatic hypotension noted. -Continue IV fluids -Repeat labs in the morning -Oral intake as able Acute oropharyngeal bleeding-complicated by anemia due to blood loss. Source of blood loss is not entirely clear and could be coming from the posterior nasopharynx versus from his cancer but I do not see any source of bleeding inside of his mouth. Hemoglobin is down to 7 with orthostatic changes and this level is on a hemoconcentrated specimen suggesting his hemoglobin will actually be lower once he is adequately hydrated. 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 Currently followed by [facility] oncology for palliative chemotherapy. Seems to be doing fairly well with the Keytruda as far as symptoms but still has a very poor prognosis. Family has discussed transition to hospice but patient is not quite ready yet. -Management as above -Outpatient follow-up with oncology versus transition to hospice Maintenance issues - -DVT prophylaxis-mechanical with recent bleeding -GI prophylaxis-not indicated -Nutrition-mechanical soft with supplements -Guillaume catheter-not indicated CODE STATUS -DNR/DNI Admission justification -this patient will be admitted for inpatient services and is medically appropriate meeting medical necessity for inpatient admission as outlined in my documentation. I reasonably expect the patient will require inpatient services that span a period time over 2 midnights. I reasonably expect this patient to be discharged or transferred within 96 hours [facility]. Disposition -I anticipate discharge home after the hospital stay Primary care physician -Dr. Anjali Gibson M.D. - Mortality Measure Prognosis:: Poor
[2021-01-17] MEDS ORDERED: Ondansetron 4 MG/2 ML SDV IV PRN (14:58)
[2021-01-17] MEDS ORDERED: oxyCODONE 5 MG Tab PO PRN (14:58)
[2021-01-17] MEDS ORDERED: Melatonin 3 MG Tab PO PRN (14:58)
[2021-01-17] MEDS ORDERED: Ondansetron 4 MG Tab.DIS PO PRN (14:58)
[2021-01-17] MEDS ORDERED: LORazepam 2 MG/ML SDV IVPUSH PRN (14:58)
[2021-01-17] MEDS ORDERED: Magnesium Hydroxide 400 MG/5 ML Susp 30 ML Cup PO PRN (14:58)
[2021-01-17] MEDS ORDERED: Acetaminophen 325 MG Tab PO PRN (14:58)
[2021-01-18] MEDS: Sodium Chloride 0.9% 1,000 ML IV SCH ×2 (04:37→09:22)
[2021-01-18] MEDS: Levothyroxine 88 MCG Tab PO SCH (09:00)
[2021-01-18] MEDS: predniSONE 5 MG Tab PO SCH (09:14)
--- NOTE | 2021-01-18 11:21 | PCM.PN ---
- General Info Date of Service: 01/18/21 Subjective Update: No acute events overnight. No recurrence of bleeding. Hemoglobin responded well to transfusion. Kidney function is better today compared to yesterday. Patient has been having difficulty swallowing even liquids at this point. Attempting to drink liquids, even thicker liquids, results in him coughing and sputtering and choking. He is interested in having a feeding tube placed if possible. He is not ready for hospice at this time. Functional Status: Reports: Pain Controlled. Denies: Tolerating Diet - Review of Systems HEENT: Reports: Dysphasia - Patient Data Vitals - Most Recent: Last Vital Signs Temp 36.9 C 01/18/21 07:20 Pulse 67 01/18/21 07:20 Resp 18 01/18/21 07:20 BP 151/68 H 01/18/21 07:20 Pulse Ox 95 01/18/21 07:20 Weight - Most Recent: 63.9 kg I&O - Last 24 Hours: Intake & Output 01/17/21 01/18/21 01/18/21 22:59 06:59 14:59 Intake Total 789 Balance 789 Lab Results Last 24 Hours: Laboratory Results - last 24 hr 01/17/21 01/18/21 01/18/21 Range/Units 08:30 00:15 04:49 WBC 14.7 H (4.5-11.0) K/uL RBC 3.19 L (4.30-5.90) M/uL Hgb 9.7 L D (12.0-15.0) g/dL Hct 29.6 L (40.0-54.0) % MCV 93 (80-98) fL MCH 30 (27-31) pg MCHC 33 (32-36) % Plt Count 144 L (150-400) K/uL Neut % (Auto) 69.0 H (36-66) % Lymph % (Auto) 6.9 L (24-44) % [place] % (Auto) 24.0 H (2-6) % Eos % (Auto) 0.0 L (2-4) % Baso % (Auto) 0.1 (0-1) % Sodium (140-148) mmol/L Potassium (3.6-5.2) mmol/L Chloride (100-108) mmol/L Carbon Dioxide (21-32) mmol/L Anion Gap (5.0-14.0) mmol/L BUN (7-18) mg/dL Creatinine (0.8-1.3) mg/dL Est Cr Clr Drug Dosing mL/min Estimated GFR (MDRD) (>60) Glucose (74-106) mg/dL Calcium (8.5-10.1) mg/dL Urine Color Yellow (YELLOW) Urine Appearance Clear (CLEAR) Urine pH 5.0 (5.0-8.0) Ur Specific [place] 1.025 (1.008-1.030) Urine Protein Trace H (NEGATIVE) mg/dL Urine Glucose (UA) Negative (NEGATIVE) mg/dL Urine Ketones Negative (NEGATIVE) mg/dL Urine Occult Blood Small H (NEGATIVE) Urine Nitrite Negative (NEGATIVE) Urine Bilirubin Negative (NEGATIVE) Urine Urobilinogen 0.2 (0.2-1.0) EU/dL Ur Leukocyte Esterase Negative (NEGATIVE) Urine RBC 0-5 (0-5) Urine WBC 0-5 (0-5) Ur Epithelial Cells Few Amorphous Sediment Moderate Urine Bacteria Moderate Urine Mucus Not seen Blood Type B POSITIVE Gel Antibody Screen Negative Crossmatch See Detail 01/18/21 Range/Units 04:49 WBC (4.5-11.0) K/uL RBC (4.30-5.90) M/uL Hgb (12.0-15.0) g/dL Hct (40.0-54.0) % MCV (80-98) fL MCH (27-31) pg MCHC (32-36) % Plt Count (150-400) K/uL Neut % (Auto) (36-66) % Lymph % (Auto) (24-44) % [place] % (Auto) (2-6) % Eos % (Auto) (2-4) % Baso % (Auto) (0-1) % Sodium 142 (140-148) mmol/L Potassium 3.8 (3.6-5.2) mmol/L Chloride 106 (100-108) mmol/L Carbon Dioxide 23 (21-32) mmol/L Anion Gap 12.7 (5.0-14.0) mmol/L BUN 28 H (7-18) mg/dL Creatinine 1.5 H (0.8-1.3) mg/dL Est Cr Clr Drug Dosing 33.13 mL/min Estimated GFR (MDRD) 45 L (>60) Glucose 91 (74-106) mg/dL Calcium 8.0 L (8.5-10.1) mg/dL Urine Color (YELLOW) Urine Appearance (CLEAR) Urine pH (5.0-8.0) Ur Specific [place] (1.008-1.030) Urine Protein (NEGATIVE) mg/dL Urine Glucose (UA) (NEGATIVE) mg/dL Urine Ketones (NEGATIVE) mg/dL Urine Occult Blood (NEGATIVE) Urine Nitrite (NEGATIVE) Urine Bilirubin (NEGATIVE) Urine Urobilinogen (0.2-1.0) EU/dL Ur Leukocyte Esterase (NEGATIVE) Urine RBC (0-5) Urine WBC (0-5) Ur Epithelial Cells Amorphous Sediment Urine Bacteria Urine Mucus Blood Type Gel Antibody Screen Crossmatch Med Orders - Current: Current Medications Acetaminophen (Acetaminophen 325 Mg Tab) 650 mg PO Q4H PRN PRN Reason: Pain (Mild 1-3)/fever Levothyroxine Sodium (Levothyroxine 88 Mcg Tab) 88 mcg PO ACBREAKFAST [facility] Last Admin: 01/18/21 09:00 Dose: 88 mcg Documented by: Lorazepam (Lorazepam 2 Mg/Ml Sdv) 0.5 mg IVPUSH Q4H PRN PRN Reason: Nausea/Vomiting Magnesium Hydroxide (Magnesium Hydroxide 400 Mg/5 Ml Susp 30 Ml Cup) 30 ml PO Q12H PRN PRN Reason: Constipation Melatonin (Melatonin 3 Mg Tab) 9 mg PO BEDTIME PRN PRN Reason: Sleep Ondansetron HCl (Ondansetron 4 Mg/2 Ml Sdv) 4 mg IV Q6H PRN PRN Reason: Nausea/Vomiting Ondansetron HCl (Ondansetron 4 Mg Tab.Dis) 4 mg PO Q6H PRN PRN Reason: Nausea able to take PO Oxycodone HCl (Oxycodone 5 Mg Tab) 5 - 10 mg PO Q4H PRN PRN Reason: Pain Prednisone (Prednisone 5 Mg Tab) 7.5 mg PO DAILY [facility] Last Admin: 01/18/21 09:14 Dose: 7.5 mg Documented by: Senna/Docusate Sodium (Docusate Sodium/Sennosides 50-8.6 Mg Tab) 1 tab PO BID PRN PRN Reason: Constipation Sodium Chloride (Sodium Chloride 0.9% 10 Ml Syringe) 10 ml FLUSH ASDIRECTED PRN PRN Reason: Keep Vein Open Last Admin: 01/17/21 09:48 Dose: 10 ml Documented by: Discontinued Medications Sodium Chloride (Normal Saline) 1,000 mls @ 200 mls/hr IV ASDIRECTED [facility]ARG[facility] Last Admin: 01/17/21 09:47 Dose: 200 mls/hr Documented by: Sodium Chloride (Normal Saline) 1,000 mls @ 125 mls/hr IV ASDIRECTED MARGARITA Last Admin: 01/18/21 09:22 Dose: 125 mls/hr Documented by: - Exam Quality Assessment: No: Supplemental Oxygen General: Alert, Oriented, Cooperative, No Acute Distress Neck: Supple, Other (swelling of left face, mild ) Lungs: Normal Respiratory Effort GI/Abdominal Exam: Soft, No Distention Extremities: No Pedal Edema Psy/Mental Status: Alert, Normal Affect - Patient Data Lab Results Last 24 hrs: Laboratory Results - last 24 hr 01/17/21 01/18/21 01/18/21 Range/Units 08:30 00:15 04:49 WBC 14.7 H (4.5-11.0) K/uL RBC 3.19 L (4.30-5.90) M/uL Hgb 9.7 L D (12.0-15.0) g/dL Hct 29.6 L (40.0-54.0) % MCV 93 (80-98) fL MCH 30 (27-31) pg MCHC 33 (32-36) % Plt Count 144 L (150-400) K/uL Neut % (Auto) 69.0 H (36-66) % Lymph % (Auto) 6.9 L (24-44) % [place] % (Auto) 24.0 H (2-6) % Eos % (Auto) 0.0 L (2-4) % Baso % (Auto) 0.1 (0-1) % Sodium (140-148) mmol/L Potassium (3.6-5.2) mmol/L Chloride (100-108) mmol/L Carbon Dioxide (21-32) mmol/L Anion Gap (5.0-14.0) mmol/L BUN (7-18) mg/dL Creatinine (0.8-1.3) mg/dL Est Cr Clr Drug Dosing mL/min Estimated GFR (MDRD) (>60) Glucose (74-106) mg/dL Calcium (8.5-10.1) mg/dL Urine Color Yellow (YELLOW) Urine Appearance Clear (CLEAR) Urine pH 5.0 (5.0-8.0) Ur Specific [place] 1.025 (1.008-1.030) Urine Protein Trace H (NEGATIVE) mg/dL Urine Glucose (UA) Negative (NEGATIVE) mg/dL Urine Ketones Negative (NEGATIVE) mg/dL Urine Occult Blood Small H (NEGATIVE) Urine Nitrite Negative (NEGATIVE) Urine Bilirubin Negative (NEGATIVE) Urine Urobilinogen 0.2 (0.2-1.0) EU/dL Ur Leukocyte Esterase Negative (NEGATIVE) Urine RBC 0-5 (0-5) Urine WBC 0-5 (0-5) Ur Epithelial Cells Few Amorphous Sediment Moderate Urine Bacteria Moderate Urine Mucus Not seen Blood Type B POSITIVE Gel Antibody Screen Negative Crossmatch See Detail 01/18/21 Range/Units 04:49 WBC (4.5-11.0) K/uL RBC (4.30-5.90) M/uL Hgb (12.0-15.0) g/dL Hct (40.0-54.0) % MCV (80-98) fL MCH (27-31) pg MCHC (32-36) % Plt Count (150-400) K/uL Neut % (Auto) (36-66) % Lymph % (Auto) (24-44) % [place] % (Auto) (2-6) % Eos % (Auto) (2-4) % Baso % (Auto) (0-1) % Sodium 142 (140-148) mmol/L Potassium 3.8 (3.6-5.2) mmol/L Chloride 106 (100-108) mmol/L Carbon Dioxide 23 (21-32) mmol/L Anion Gap 12.7 (5.0-14.0) mmol/L BUN 28 H (7-18) mg/dL Creatinine 1.5 H (0.8-1.3) mg/dL Est Cr Clr Drug Dosing 33.13 mL/min Estimated GFR (MDRD) 45 L (>60) Glucose 91 (74-106) mg/dL Calcium 8.0 L (8.5-10.1) mg/dL Urine Color (YELLOW) Urine Appearance (CLEAR) Urine pH (5.0-8.0) Ur Specific [place] (1.008-1.030) Urine Protein (NEGATIVE) mg/dL Urine Glucose (UA) (NEGATIVE) mg/dL Urine Ketones (NEGATIVE) mg/dL Urine Occult Blood (NEGATIVE) Urine Nitrite (NEGATIVE) Urine Bilirubin (NEGATIVE) Urine Urobilinogen (0.2-1.0) EU/dL Ur Leukocyte Esterase (NEGATIVE) Urine RBC (0-5) Urine WBC (0-5) Ur Epithelial Cells Amorphous Sediment Urine Bacteria Urine Mucus Blood Type Gel Antibody Screen Crossmatch Result Diagrams: 01/18/21 04:49 01/18/21 04:49 Sepsis Event Note - Evaluation Sepsis Screening Result: No Definite Risk - Focused Exam Vital Signs: Vital Signs Temp Pulse Resp BP Pulse Ox 01/18/21 07:20 36.9 C 67 18 151/68 H 95 01/18/21 02:09 36.4 C 79 16 125/63 96 - Problem List & Annotations (1) Acute kidney injury SNOMED Code(s): 35665325, 34291433 Code(s): N17.9 - ACUTE KIDNEY FAILURE, UNSPECIFIED Status: Acute Current Visit: No (2) Oropharyngeal bleeding SNOMED Code(s): 267405988, 201525821 Code(s): J39.2 - OTHER DISEASES OF PHARYNX Status: Acute Current Visit: No (3) Anemia due to blood loss, acute SNOMED Code(s): 553307791 Code(s): D62 - ACUTE POSTHEMORRHAGIC ANEMIA Status: Acute Current Visit: No (4) Dehydration SNOMED Code(s): 29870517 Code(s): E86.0 - DEHYDRATION Status: Acute Current Visit: No (5) Orthostatic hypotension SNOMED Code(s): 74802299 Code(s): I95.1 - ORTHOSTATIC HYPOTENSION Status: Acute Current Visit: No (6) Primary parotid gland malignancy SNOMED Code(s): 583686342 Code(s): C07 - MALIGNANT NEOPLASM OF PAROTID GLAND Status: Chronic Current Visit: No - Problem List Review Problem List Initiated/Reviewed/Updated: Yes - My Orders Last 24 Hours: My Active Orders 01/17/21 14:22 Resuscitation Status Routine 01/17/21 14:58 Acetaminophen [TylenoL] 650 mg PO Q4H PRN Docusate Sodium/Sennosides [Senna Plus] 1 tab PO BID PRN LORazepam [Ativan] 0.5 mg IVPUSH Q4H PRN Magnesium Hydroxide [Milk of Magnesia] 30 ml PO Q12H PRN Melatonin 9 mg PO BEDTIME PRN Ondansetron [Zofran ODT] 4 mg PO Q6H PRN Ondansetron [Zofran] 4 mg IV Q6H PRN oxyCODONE 5 - 10 mg PO Q4H PRN 01/17/21 14:58 Patient Status [ADT] Routine Antiembolic Devices [RC] .Routine Dietary Supplements [RC] TIDMEALS Intake and Output [RC] QSHIFT Notify Provider Vital Signs [RC] ASDIRECTED Oxygen Therapy [RC] PRN Up With Assistance [RC] ASDIRECTED Vital Signs [RC] Q4H Sequential Compression Device [OM.PC] Routine Transfuse Red Blood Cells [COMM] Routine VTE Pharmacological Contraindications [AST] Routine 01/17/21 Dinner Mechanical Soft Diet [DIET] 01/18/21 07:30 Levothyroxine [Synthroid] 88 mcg PO ACBREAKFAST 01/18/21 09:00 predniSONE 7.5 mg PO DAILY 01/18/21 11:19 Consult to Physician [CONS] Routine 01/18/21 11:20 Notify Provider Consults [RC] ASDIRECTED 01/18/21 11:30 Dextrose 5%-Lactated Ringers with KCl 20 mEq @ 75 mL/Hr (1000 mL) Dextrose 5%- Lact Ringers w/KCl [D5 LR with 20 mEq KCl] 1,000 ml IV ASDIRECTED 01/19/21 05:00 BASIC METABOLIC PANEL,BMP [CHEM] Timed CBC W/O DIFF,HEMOGRAM [HEME] Timed (1) - Plan Plan:: ASSESSMENT AND PLAN - Acute kidney injury-secondary to poor intake and resulting dehydration that is a complication of his cancer as discussed below. Creatinine has improved but not quite normalized. -Continue gentle IV fluids -Repeat labs in the morning Acute oropharyngeal bleeding-complicated by anemia due to blood loss. No bleeding overnight. Responded well to transfusion yesterday. White count has improved. -Recheck in the morning -Symptomatic management of pain if present -Consider antibiotics for anaerobic/oral bacteria if he develops a fever Advanced parotid gland vejqv-axin-qowlv tumor that is stage III. Currently followed by [facility] oncology for palliative chemotherapy. Patient is interested in a feeding tube to help maintain nutrition and receive medications. -Management as above -Surgical consultation with Dr. Garcia for feeding tube placement tomorrow -Outpatient follow-up with oncology versus transition to hospice Maintenance issues - -DVT prophylaxis-mechanical with recent bleeding -GI prophylaxis-not indicated -Nutrition-patient unable to take anything by mouth at this time CODE STATUS -DNR/DNI Disposition -I anticipate discharge home after the hospital stay Primary care physician -Dr. Anjali Gibson M.D.
[2021-01-18] MEDS: methylPREDNISolone Sodium Succinate 40 MG/1 ML SDV IVPUSH SCH (14:44)
[2021-01-18] MEDS: Dextrose 5%-Lact Ringers w/KCl 1,000 ML IV SCH (14:45)
[2021-01-19] MEDS: Dextrose 5%-Lact Ringers w/KCl 1,000 ML IV SCH ×2 (04:44→22:36)
[2021-01-19] MEDS ORDERED: Propofol 200 MG/20 ML SDV ONE ×2 (07:08→10:01)
[2021-01-19] MEDS ORDERED: Midazolam 1 MG/ML 2 ML SDV ONE (07:08)
[2021-01-19] MEDS ORDERED: fentaNYL 100 MCG/2 ML SDV ONE (07:08)
--- NOTE | 2021-01-19 07:32 | PCM.CONS ---
H&P History of Present Illness - General Date of Service: 01/19/21 Admit Problem/Dx: Admission Diagnosis/Problem Admission Diagnosis/Problem Acute kidney injury Source of Information: Patient History Limitations: Reports: No Limitations - History of Present Illness Initial Comments - Free Text/Narative: Valentino will be having a P.E.G. Tube placed today. 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 - Related Data Allergies/Adverse Reactions: Allergies Allergy/AdvReac Type Severity Reaction Status Date / Time No Known Allergies Allergy Verified 01/17/21 08:07 Home Medications: Home Meds Levothyroxine [Synthroid] 88 mcg PO ACBREAKFAST 12/15/16 [History] predniSONE [Prednisone] 7.5 mg PO DAILY 12/15/16 [History] Past Medical History HEENT History: Reports: Cataract Respiratory History: Reports: Pulmonary Fibrosis Gastrointestinal History: Reports: Chronic Constipation Genitourinary History: Reports: Other (See Below) Other Genitourinary History: Prostate cancer Musculoskeletal History: Reports: Fracture Other Endocrine/Metabolic History: parotid surgery 1970 & 2001 Hematologic History: Reports: Other (See Below) 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 Oncologic (Cancer) History: Reports: Prostate, Other (See Below) - Past Surgical History Head Surgeries/Procedures: Reports: None HEENT Surgical History: Reports: Cataract Surgery, Other (See Below) Other HEENT Surgeries/Procedures: radiation to throat Respiratory Surgical History: Reports: None GI Surgical History: Reports: Hernia, Inguinal Male Surgical History: Reports: Prostatectomy Endocrine Surgical History: Reports: None Musculoskeletal Surgical History: Reports: None Oncologic Surgical History: Reports: None Dermatological Surgical History: Reports: None Social & Family History - Family History Family Medical History: No Pertinent Family History Cardiac: Denies: CAD - Tobacco Use Tobacco Use Status *Q: Never Tobacco User - Caffeine Use Caffeine Use: Reports: Coffee, Tea - Recreational Drug Use Recreational Drug Use: No H&P Review of Systems - Review of Systems: Review Of Systems: See Below Free Text/Narrative: Parotid Adenoma General: Reports: No Symptoms, Weakness, Fatigue, Decreased Appetite, Weight Loss HEENT: Reports: No Symptoms Pulmonary: Reports: No Symptoms Cardiovascular: Reports: No Symptoms Gastrointestinal: Reports: Decreased Appetite, Difficulty Swallowing Genitourinary: Reports: No Symptoms Musculoskeletal: Reports: No Symptoms Skin: Reports: No Symptoms Psychiatric: Reports: No Symptoms Neurological: Reports: No Symptoms Hematologic/Lymphatic: Reports: No Symptoms Immunologic: Reports: No Symptoms Exam - Exam Exam: See Below - Vital Signs Vital Signs: Last Vital Signs Temp 97.1 F 01/19/21 07:00 Pulse 80 01/19/21 07:00 Resp 16 01/19/21 07:00 BP 143/67 H 01/19/21 07:00 Pulse Ox 98 01/19/21 07:00 Weight: 140 lb 14.006 oz - Exam Quality Assessment: Supplemental Oxygen, DVT Prophylaxis General: Alert, Oriented, Cooperative HEENT: PERRLA Neck: Supple Lungs: Clear to Auscultation, Normal Respiratory Effort Cardiovascular: Regular Rate, Regular Rhythm GI/Abdominal Exam: Soft, Non-Tender (Male) Exam: Deferred Rectal (Males) Exam: Deferred Back Exam: Normal Inspection, Full Range of Motion Extremities: Normal Inspection, Normal Range of Motion, No Pedal Edema, Normal Capillary Refill Skin: Warm, Dry, Intact Neurological: Cranial Nerves Intact, Reflexes Equal Bilateral Neuro Extensive - Mental Status: Alert, Oriented x3, Normal Mood/Affect - Patient Data Lab Results Last 24 hrs: Laboratory Results - last 24 hr 01/19/21 01/19/21 Range/Units 04:15 04:15 WBC 8.2 (4.5-11.0) K/uL RBC 3.31 L (4.30-5.90) M/uL Hgb 9.8 L (12.0-15.0) g/dL Hct 30.2 L (40.0-54.0) % MCV 91 (80-98) fL MCH 30 (27-31) pg MCHC 33 (32-36) % Plt Count 172 (150-400) K/uL Sodium 141 (140-148) mmol/L Potassium 4.0 (3.6-5.2) mmol/L Chloride 105 (100-108) mmol/L Carbon Dioxide 26 (21-32) mmol/L Anion Gap 10.2 (5.0-14.0) mmol/L BUN 18 (7-18) mg/dL Creatinine 1.0 (0.8-1.3) mg/dL Est Cr Clr Drug Dosing 49.70 mL/min Estimated GFR (MDRD) > 60 (>60) Glucose 140 H (74-106) mg/dL Calcium 8.0 L (8.5-10.1) mg/dL Result Diagrams: 01/19/21 04:15 01/19/21 04:15 Sepsis Event Note - Evaluation Sepsis Screening Result: No Definite Risk - Focused Exam Vital Signs: Vital Signs Temp Pulse Resp BP Pulse Ox 01/19/21 07:00 97.1 F 80 16 143/67 H 98 01/19/21 03:00 84 16 115/74 96 01/18/21 23:00 98.2 F 86 16 123/55 L 96 *Q Meaningful Use (ADM) - VTE *Q VTE Pharmacological Contraindications *Q: Risk of Bleeding Consult PN Assessment/Plan POD#: 0 Procedures: Procedures Placement of a PEG Tube - Case to follow - 01/19/2021 Clay Garcia MD NPO COMPLETE CBC W/AUTO DIFF WBC (01/20/19) COMPREHEN METABOLIC PANEL (01/20/19) EMERGENCY DEPT VISIT (01/20/19) EMERGENCY DEPT VISIT (12/15/16) EMERGENCY DEPT VISIT (11/05/13) EMERGENCY DEPT VISIT (11/05/13) MANUAL THERAPY 1/> REGIONS (04/18/19) METABOLIC PANEL TOTAL CA (12/15/16) NEUROMUSCULAR REEDUCATION (04/18/19) PT EVAL MOD COMPLEX 30 MIN (04/18/19) ROUTINE VENIPUNCTURE (01/20/19) THROMBOPLASTIN TIME PARTIAL (01/20/19) Problem List Initiated/Reviewed/Updated: Yes My Orders Last 24 Hours: My Active Orders 01/19/21 07:08 Consult to Senior Accounting Specialist [CONS] Routine Plan: Orders to be written post operatively. Thank your for this consultation. Abbie Chen 01/19/2021
[2021-01-19] MEDS ORDERED: cefOXitin 2 GM in Sodium Chloride 0.9% 50 ML IV ONE (10:00)
[2021-01-19] MEDS: methylPREDNISolone Sodium Succinate 40 MG/1 ML SDV IVPUSH SCH (10:55)
--- NOTE | 2021-01-19 15:35 | PCM.PN ---
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 Garcia. When seen he was sleepy and still recovering from anesthesia. Functional Status: Reports: Urinating - Review of Systems General: Reports: Weakness, Fatigue. Denies: Fever, Chills Pulmonary: Reports: No Symptoms Cardiovascular: Reports: No Symptoms Gastrointestinal: Reports: No Symptoms Genitourinary: Reports: No Symptoms - Patient Data Vitals - Most Recent: Last Vital Signs Temp 97.5 F 01/19/21 14:00 Pulse 59 L 01/19/21 14:00 Resp 16 01/19/21 14:00 BP 143/81 H 01/19/21 15:26 Pulse Ox 96 01/19/21 14:00 Weight - Most Recent: 140 lb 14.006 oz I&O - Last 24 Hours: Intake & Output 01/19/21 01/19/21 01/19/21 06:59 14:59 22:59 Intake Total 733 Balance 733 Lab Results Last 24 Hours: Laboratory Results - last 24 hr 01/19/21 01/19/21 Range/Units 04:15 04:15 WBC 8.2 (4.5-11.0) K/uL RBC 3.31 L (4.30-5.90) M/uL Hgb 9.8 L (12.0-15.0) g/dL Hct 30.2 L (40.0-54.0) % MCV 91 (80-98) fL MCH 30 (27-31) pg MCHC 33 (32-36) % Plt Count 172 (150-400) K/uL Sodium 141 (140-148) mmol/L Potassium 4.0 (3.6-5.2) mmol/L Chloride 105 (100-108) mmol/L Carbon Dioxide 26 (21-32) mmol/L Anion Gap 10.2 (5.0-14.0) mmol/L BUN 18 (7-18) mg/dL Creatinine 1.0 (0.8-1.3) mg/dL Est Cr Clr Drug Dosing 49.70 mL/min Estimated GFR (MDRD) > 60 (>60) Glucose 140 H (74-106) mg/dL Calcium 8.0 L (8.5-10.1) mg/dL Med Orders - Current: Current Medications Acetaminophen (Acetaminophen 325 Mg Tab) 650 mg PO Q4H PRN PRN Reason: Pain (Mild 1-3)/fever Potassium Cl/Dextrose/Lact Ringer's (D5 Lr With 20 Meq Kcl) 1,000 mls @ 75 mls/ hr IV ASDIRECTED [facility] Last Admin: 01/19/21 04:44 Dose: 75 mls/hr Documented by: Levothyroxine Sodium (Levothyroxine 88 Mcg Tab) 88 mcg PO ACBREAKFAST [facility] Last Admin: 01/18/21 09:00 Dose: 88 mcg Documented by: Lorazepam (Lorazepam 2 Mg/Ml Sdv) 0.5 mg IVPUSH Q4H PRN PRN Reason: Nausea/Vomiting Magnesium Hydroxide (Magnesium Hydroxide 400 Mg/5 Ml Susp 30 Ml Cup) 30 ml PO Q12H PRN PRN Reason: Constipation Melatonin (Melatonin 3 Mg Tab) 9 mg PO BEDTIME PRN PRN Reason: Sleep Methylprednisolone Sodium Succinate (Methylprednisolone Sodium Succinate 40 Mg/1 Ml Sdv) 40 mg IVPUSH DAILY [facility] Stop: 01/20/21 09:01 Last Admin: 01/19/21 10:55 Dose: 40 mg Documented by: Ondansetron HCl (Ondansetron 4 Mg/2 Ml Sdv) 4 mg IV Q6H PRN PRN Reason: Nausea/Vomiting Ondansetron HCl (Ondansetron 4 Mg Tab.Dis) 4 mg PO Q6H PRN PRN Reason: Nausea able to take PO Oxycodone HCl (Oxycodone 5 Mg Tab) 5 - 10 mg PO Q4H PRN PRN Reason: Pain Prednisone (Prednisone 5 Mg Tab) 7.5 mg PO DAILY [facility] Last Admin: 01/18/21 09:14 Dose: 7.5 mg Documented by: Senna/Docusate Sodium (Docusate Sodium/Sennosides 50-8.6 Mg Tab) 1 tab PO BID PRN PRN Reason: Constipation Sodium Chloride (Sodium Chloride 0.9% 10 Ml Syringe) 10 ml FLUSH ASDIRECTED PRN PRN Reason: Keep Vein Open Last Admin: 01/17/21 09:48 Dose: 10 ml Documented by: Discontinued Medications Fentanyl (Fentanyl 100 Mcg/2 Ml Sdv) Confirm Administered Dose 100 mcg .ROUTE .[facility] ONE Stop: 01/19/21 07:09 Sodium Chloride (Normal Saline) 1,000 mls @ 200 mls/hr IV ASDIRECTED [facility] Last Admin: 01/17/21 09:47 Dose: 200 mls/hr Documented by: Sodium Chloride (Normal Saline) 1,000 mls @ 125 mls/hr IV ASDIRECTED [facility] Last Admin: 01/18/21 09:22 Dose: 125 mls/hr Documented by: Cefoxitin Sodium 2 gm/ Sodium (Chloride) 50 mls @ 100 mls/hr IV ONETIME ONE Stop: 01/19/21 10:29 Last Admin: 01/19/21 09:20 Dose: 100 mls/hr Documented by: Midazolam HCl (Midazolam 1 Mg/Ml 2 Ml Sdv) Confirm Administered Dose 2 mg .ROUTE .STK-MED ONE Stop: 01/19/21 07:09 Propofol (Propofol 200 Mg/20 Ml Sdv) Confirm Administered Dose 200 mg .ROUTE .STK-MED ONE Stop: 01/19/21 07:09 Propofol (Propofol 200 Mg/20 Ml Sdv) Confirm Administered Dose 200 mg .ROUTE .STK-MED ONE Stop: 01/19/21 10:02 - Exam General: Sedated, Lethargic Lungs: Clear to Auscultation, Normal Respiratory Effort Cardiovascular: Regular Rate, Regular Rhythm, No Murmurs GI/Abdominal Exam: Soft, No Organomegaly, Tender. No: Distended, Guarding, Rigid, Rebound - Patient Data Lab Results Last 24 hrs: Laboratory Results - last 24 hr 01/19/21 01/19/21 Range/Units 04:15 04:15 WBC 8.2 (4.5-11.0) K/uL RBC 3.31 L (4.30-5.90) M/uL Hgb 9.8 L (12.0-15.0) g/dL Hct 30.2 L (40.0-54.0) % MCV 91 (80-98) fL MCH 30 (27-31) pg MCHC 33 (32-36) % Plt Count 172 (150-400) K/uL Sodium 141 (140-148) mmol/L Potassium 4.0 (3.6-5.2) mmol/L Chloride 105 (100-108) mmol/L Carbon Dioxide 26 (21-32) mmol/L Anion Gap 10.2 (5.0-14.0) mmol/L BUN 18 (7-18) mg/dL Creatinine 1.0 (0.8-1.3) mg/dL Est Cr Clr Drug Dosing 49.70 mL/min Estimated GFR (MDRD) > 60 (>60) Glucose 140 H (74-106) mg/dL Calcium 8.0 L (8.5-10.1) mg/dL Result Diagrams: 01/19/21 04:15 01/19/21 04:15 Sepsis Event Note - Evaluation Sepsis Screening Result: No Definite Risk - Focused Exam Vital Signs: Vital Signs Temp Pulse Pulse Resp BP BP Pulse Ox 01/19/21 15:26 143/81 H 01/19/21 14:00 97.5 F 59 L 16 159/91 H 96 01/19/21 13:40 98.3 F 89 16 151/68 H 98 01/19/21 12:46 97.9 F 90 16 140/72 97 01/19/21 12:18 96.9 F 86 16 131/74 96 01/19/21 11:45 96.8 F L 79 18 143/80 H 96 01/19/21 11:32 96.8 F L 82 16 135/72 96 01/19/21 11:16 97.3 F 80 16 125/71 96 01/19/21 11:00 97.4 F 82 18 123/75 96 01/19/21 10:47 97.5 F 87 18 128/76 97 01/19/21 10:35 90 20 130/79 93 L 01/19/21 10:30 90 20 128/76 93 L 01/19/21 10:25 98.6 F 100 20 135/76 92 L 01/19/21 10:20 105 H 20 154/76 H 94 L 01/19/21 10:15 118 H 20 172/80 H 95 01/19/21 10:10 115 H 20 178/88 H 96 01/19/21 10:05 98.6 F 107 H 20 186/80 H 95 01/19/21 07:00 97.1 F 80 16 143/67 H 98 - Problem List Review Problem List Initiated/Reviewed/Updated: Yes - Plan Plan:: ASSESSMENT AND PLAN - Acute kidney injury-secondary to poor intake and resulting dehydration that is a complication of his cancer as discussed below. Renal function has improved with hydration -Continue gentle IV fluids -Repeat labs in the morning Acute oropharyngeal bleeding-complicated by anemia due to blood loss. No bleeding overnight. Responded well to transfusion yesterday. White count has improved. 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 Currently followed by [facility] oncology for palliative chemotherapy. Status post PEG feeding tube placement earlier today by Dr. Garcia -Surgical follow-up per Dr. Garcia -Outpatient follow-up with oncology versus transition to hospice Maintenance issues - -DVT prophylaxis-mechanical with recent bleeding -GI prophylaxis-not indicated -Nutrition-patient unable to take anything by mouth at this time CODE STATUS -DNR/DNI Disposition -I anticipate discharge home after the hospital stay Primary care physician -Dr. Anjali Fortune
[2021-01-20] MEDS: predniSONE 5 MG Tab PO SCH (08:39)
[2021-01-20] MEDS: methylPREDNISolone Sodium Succinate 40 MG/1 ML SDV IVPUSH SCH (08:40)
[2021-01-20] MEDS: Dextrose 5%-Lact Ringers w/KCl 1,000 ML IV SCH (08:45)
[2021-01-20] MEDS: Levothyroxine 88 MCG Tab PO SCH (08:59)
[2021-01-20] MEDS: Magnesium Sulfate/Water 2 GM/50 ML BAG IV SCH ×3 (10:21→22:38)
[2021-01-20] MEDS: Potassium Phosphates 20 MMOLE in Sodium Chloride 0.9% 250 ML IV SCH ×3 (10:21→16:42)
--- NOTE | 2021-01-20 11:44 | PN ---
DATE OF SERVICE: 01/20/2021 SUBJECTIVE: Valentino has no concerns or questions today. He states his pain is controlled. Potassium is 3.4, phosphorus 1.8, and magnesium is 1.6. REVIEW OF SYSTEMS: Remainder of review of systems negative for any pertinent positives and negatives. OBJECTIVE: GENERAL: Valentino is a pleasant 85-year-old male. He is alert and orientated. VITAL SIGNS: TPR 99.7, 86, 16, blood pressure 147/73. HEENT: Negative. NECK: Supple. HEART: Regular rate and rhythm. LUNGS: Clear. ABDOMEN: Dressings dry and intact. EXTREMITIES: Without peripheral edema. ASSESSMENT: PEG placement for inability to maintain adequate oral intake. Date of procedure 01/19/2021. Plan is to start tube feedings per directions in chart. We will set up home health care. Magnesium 2 g IV q.6 hours x72 hours, K-Phos 60 mmol IV one time today. Check CBC, CMP, and phosphorus in a.m. We will evaluate p.r.n. or in a.m. Abbie Esparza PA-C /[id number]
--- NOTE | 2021-01-20 12:29 | PCM.SN.2 ---
- Free Text/Narrative Note: 01/20/2021 Valentino Wan is a pleasant 85 year old male who has Parotid Cancer and is unable to eat or drink. A P.E.G. Tube was placed and for nutritional purposes and to maintain adequate fluid intake. Valentino will need to have tube feedings for greater than 90 days. Abbie Chen 01/20/2021
--- NOTE | 2021-01-20 16:29 | PCM.PN ---
- General Info Date of Service: 01/20/21 Subjective Update: Dr. 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 Tube feedings have started today and thus far he has tolerated them without significant difficulty. No recurrent bleeding from his malignancy over the past few days. Functional Status: Reports: Ambulating, Urinating - Review of Systems General: Reports: Weakness, Fatigue. Denies: Fever, Chills Pulmonary: Reports: No Symptoms Cardiovascular: Reports: No Symptoms Gastrointestinal: Reports: No Symptoms Genitourinary: Reports: No Symptoms - Patient Data Vitals - Most Recent: Last Vital Signs Temp 97.3 F 01/20/21 15:58 Pulse 92 01/20/21 15:58 Resp 16 01/20/21 15:58 BP 128/70 01/20/21 15:58 Pulse Ox 97 01/20/21 15:58 Weight - Most Recent: 144 lb 6.444 oz I&O - Last 24 Hours: Intake & Output 01/20/21 01/20/21 01/20/21 06:59 14:59 22:59 Intake Total 636 Output Total 310 Balance 326 Lab Results Last 24 Hours: Laboratory Results - last 24 hr 01/20/21 01/20/21 Range/Units 04:10 04:10 WBC 8.1 (4.5-11.0) K/uL RBC 3.68 L (4.30-5.90) M/uL Hgb 10.7 L (12.0-15.0) g/dL Hct 33.9 L (40.0-54.0) % MCV 92 (80-98) fL MCH 29 (27-31) pg MCHC 32 (32-36) % Plt Count 208 (150-400) K/uL Sodium 141 (140-148) mmol/L Potassium 3.4 L (3.6-5.2) mmol/L Chloride 103 (100-108) mmol/L Carbon Dioxide 30 (21-32) mmol/L Anion Gap 11.4 (5.0-14.0) mmol/L BUN 13 (7-18) mg/dL Creatinine 1.1 (0.8-1.3) mg/dL Est Cr Clr Drug Dosing 46.31 mL/min Estimated GFR (MDRD) > 60 (>60) Glucose 135 H (74-106) mg/dL Calcium 8.3 L (8.5-10.1) mg/dL Phosphorus 1.8 L (2.5-4.9) mg/dL Magnesium 1.6 L (1.8-2.4) mg/dL Total Bilirubin 0.8 (0.2-1.0) mg/dL AST 117 H (15-37) U/L ALT 328 H (12-78) U/L Alkaline Phosphatase 68 (46-116) U/L Total Protein 6.8 (6.4-8.2) g/dL Albumin 2.4 L (3.4-5.0) g/dL Globulin 4.4 H (2.3-3.5) g/dL Albumin/Globulin Ratio 0.6 L (1.2-2.2) Med Orders - Current: Current Medications Acetaminophen (Acetaminophen 325 Mg Tab) 650 mg PO Q4H PRN PRN Reason: Pain (Mild 1-3)/fever Potassium Cl/Dextrose/Lact Ringer's (D5 Lr With 20 Meq Kcl) 1,000 mls @ 100 ml s/hr IV ASDIRECTED [facility] Last Admin: 01/20/21 08:45 Dose: 100 mls/hr Documented by: Magnesium Sulfate (Magnesium Sulfate In Water 2 Gm/50 Ml) 2 gm in 50 mls @ 12.5 mls/hr IV Q6H [facility] Stop: 01/23/21 07:59 Last Admin: 01/20/21 10:21 Dose: 12.5 mls/hr Documented by: Potassium Phosphate 20 mmole/ (Sodium Chloride) 256.6667 mls @ 85 mls/hr IV Q3H [facility] Stop: 01/20/21 18:59 Last Admin: 01/20/21 13:36 Dose: 85 mls/hr Documented by: Levothyroxine Sodium (Levothyroxine 88 Mcg Tab) 88 mcg PO ACBREAKFAST [facility] Last Admin: 01/20/21 08:59 Dose: 88 mcg Documented by: Lorazepam (Lorazepam 2 Mg/Ml Sdv) 0.5 mg IVPUSH Q4H PRN PRN Reason: Nausea/Vomiting Magnesium Hydroxide (Magnesium Hydroxide 400 Mg/5 Ml Susp 30 Ml Cup) 30 ml PO Q12H PRN PRN Reason: Constipation Last Admin: 01/20/21 09:03 Dose: 30 ml Documented by: Melatonin (Melatonin 3 Mg Tab) 9 mg PO BEDTIME PRN PRN Reason: Sleep Ondansetron HCl (Ondansetron 4 Mg/2 Ml Sdv) 4 mg IV Q6H PRN PRN Reason: Nausea/Vomiting Ondansetron HCl (Ondansetron 4 Mg Tab.Dis) 4 mg PO Q6H PRN PRN Reason: Nausea able to take PO Oxycodone HCl (Oxycodone 5 Mg Tab) 5 - 10 mg PO Q4H PRN PRN Reason: Pain Prednisone (Prednisone 5 Mg Tab) 7.5 mg PO DAILY [facility] Last Admin: 01/20/21 08:39 Dose: 7.5 mg Documented by: Senna/Docusate Sodium (Docusate Sodium/Sennosides 50-8.6 Mg Tab) 1 tab PO BID PRN PRN Reason: Constipation Sodium Chloride (Sodium Chloride 0.9% 10 Ml Syringe) 10 ml FLUSH ASDIRECTED PRN PRN Reason: Keep Vein Open Last Admin: 01/17/21 09:48 Dose: 10 ml Documented by: Discontinued Medications Fentanyl (Fentanyl 100 Mcg/2 Ml Sdv) Confirm Administered Dose 100 mcg .ROUTE .STK-MED ONE Stop: 01/19/21 07:09 Sodium Chloride (Normal Saline) 1,000 mls @ 200 mls/hr IV ASDIRECTED [facility] Last Admin: 01/17/21 09:47 Dose: 200 mls/hr Documented by: Sodium Chloride (Normal Saline) 1,000 mls @ 125 mls/hr IV ASDIRECTED [facility] Last Admin: 01/18/21 09:22 Dose: 125 mls/hr Documented by: Cefoxitin Sodium 2 gm/ Sodium (Chloride) 50 mls @ 100 mls/hr IV ONETIME ONE Stop: 01/19/21 10:29 Last Admin: 01/19/21 09:20 Dose: 100 mls/hr Documented by: Methylprednisolone Sodium Succinate (Methylprednisolone Sodium Succinate 40 Mg/1 Ml Sdv) 40 mg IVPUSH DAILY [facility] Stop: 01/20/21 09:01 Last Admin: 01/20/21 08:40 Dose: 40 mg Documented by: Midazolam HCl (Midazolam 1 Mg/Ml 2 Ml Sdv) Confirm Administered Dose 2 mg .ROUTE .STK-MED ONE Stop: 01/19/21 07:09 Propofol (Propofol 200 Mg/20 Ml Sdv) Confirm Administered Dose 200 mg .ROUTE .STK-MED ONE Stop: 01/19/21 07:09 Propofol (Propofol 200 Mg/20 Ml Sdv) Confirm Administered Dose 200 mg .ROUTE .STK-MED ONE Stop: 01/19/21 10:02 - Exam General: Alert, Oriented, Cooperative, Mild Distress Lungs: Clear to Auscultation, Normal Respiratory Effort Cardiovascular: Regular Rate, Regular Rhythm, No Murmurs GI/Abdominal Exam: Soft, No Organomegaly, Tender. No: Distended, Guarding, Rigid, Rebound Extremities: Non-Tender, No Pedal Edema - Patient Data Lab Results Last 24 hrs: Laboratory Results - last 24 hr 01/20/21 01/20/21 Range/Units 04:10 04:10 WBC 8.1 (4.5-11.0) K/uL RBC 3.68 L (4.30-5.90) M/uL Hgb 10.7 L (12.0-15.0) g/dL Hct 33.9 L (40.0-54.0) % MCV 92 (80-98) fL MCH 29 (27-31) pg MCHC 32 (32-36) % Plt Count 208 (150-400) K/uL Sodium 141 (140-148) mmol/L Potassium 3.4 L (3.6-5.2) mmol/L Chloride 103 (100-108) mmol/L Carbon Dioxide 30 (21-32) mmol/L Anion Gap 11.4 (5.0-14.0) mmol/L BUN 13 (7-18) mg/dL Creatinine 1.1 (0.8-1.3) mg/dL Est Cr Clr Drug Dosing 46.31 mL/min Estimated GFR (MDRD) > 60 (>60) Glucose 135 H (74-106) mg/dL Calcium 8.3 L (8.5-10.1) mg/dL Phosphorus 1.8 L (2.5-4.9) mg/dL Magnesium 1.6 L (1.8-2.4) mg/dL Total Bilirubin 0.8 (0.2-1.0) mg/dL AST 117 H (15-37) U/L ALT 328 H (12-78) U/L Alkaline Phosphatase 68 (46-116) U/L Total Protein 6.8 (6.4-8.2) g/dL Albumin 2.4 L (3.4-5.0) g/dL Globulin 4.4 H (2.3-3.5) g/dL Albumin/Globulin Ratio 0.6 L (1.2-2.2) Result Diagrams: 01/20/21 04:10 01/20/21 04:10 Sepsis Event Note - Evaluation Sepsis Screening Result: No Definite Risk - Focused Exam Vital Signs: Vital Signs Temp Temp Pulse Resp BP BP Pulse Ox 01/20/21 15:58 97.3 F 92 16 128/70 97 01/20/21 11:16 98.3 F 89 18 147/104 H 97 01/20/21 07:46 99.7 F 86 16 147/73 H 97 01/20/21 05:00 97.0 F 87 18 150/77 H 98 - Problem List Review Problem List Initiated/Reviewed/Updated: Yes - My Orders Last 24 Hours: My Active Orders 01/20/21 12:10 Consult to Physical Therapy [PT Evaluation and Treatment] [CONS] Routine - Plan Plan:: ASSESSMENT AND PLAN - Acute kidney injury-resolved -Saline lock IV -Repeat labs in the morning Acute oropharyngeal bleeding-complicated by anemia due to blood loss. 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 Currently followed by [facility] oncology for palliative chemotherapy. Status post PEG feeding tube placement earlier today by Dr. Garcia -Surgical follow-up per Dr. Garcia -Outpatient follow-up with oncology versus transition to hospice Maintenance issues - -DVT prophylaxis-mechanical with recent bleeding -GI prophylaxis-not indicated -Nutrition-patient unable to take anything by mouth at this time CODE STATUS -DNR/DNI Disposition -I anticipate discharge home after the hospital stay Primary care physician -Dr. Anjali Fortune
[2021-01-20] MEDS ORDERED: Loperamide 2 MG Cap PO PRN (18:21)
[2021-01-21] MEDS: Magnesium Sulfate/Water 2 GM/50 ML BAG IV SCH ×4 (03:44→22:11)
[2021-01-21] MEDS: predniSONE 5 MG Tab PO SCH (09:19)
[2021-01-21] MEDS: Levothyroxine 88 MCG Tab PO SCH (09:19)
[2021-01-21] MEDS: Potassium Phosphates 3 mMole/ML 15 ML SDV SCH ×3 (09:19→17:58)
--- NOTE | 2021-01-21 11:08 | PN ---
DATE OF SERVICE: 01/21/2021 SUBJECTIVE: Valentino has not been taking anything for pain. He is tolerating his gastrostomy tube feedings without any problems. It has gradually increased to where he is at his maintenance dose of 95 mL/hr. He will get 2 boluses today during the day. Potassium 3.5. REVIEW OF SYSTEMS: Remainder of review of systems negative for any pertinent positives and negatives. OBJECTIVE: GENERAL: Valentino Wan is a pleasant 85-year-old male. He has been sleeping very soundly, difficult to awaken today. VITAL SIGNS: TPR is 98.4, 88, 16, blood pressure 115/74. HEENT: Negative. NECK: Supple. HEART: Regular rate and rhythm. LUNGS: Clear. ABDOMEN: Dressings dry and intact. Abdominal binder is on. EXTREMITIES: Without peripheral edema. ASSESSMENT: Percutaneous endoscopic gastrostomy placement for inability to maintain adequate oral intake. Date of procedure 01/19/2021. Surgeon: Clay Garcia MD. PLAN: 1. Continue gastrostomy tube feedings per orders of . 2. K-Phos 75 mmol through gastrostomy feeding tube. Give in 3 divided doses. 3. Check CBC, CMP, and phos in a.m. 4. Discharge in a.m. with home health care and option care, monitoring his gastrostomy tube feedings and supplies. We will evaluate p.r.n. or in a.m. Abbie Esparza PA-C /[id number]
--- NOTE | 2021-01-21 13:24 | PCM.PN ---
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 He is feeling somewhat improved and able to swallow better over the last 2 days. Functional Status: Reports: Ambulating, Urinating - Review of Systems General: Reports: No Symptoms Pulmonary: Reports: No Symptoms Cardiovascular: Reports: No Symptoms Gastrointestinal: Reports: No Symptoms Genitourinary: Reports: No Symptoms - Patient Data Vitals - Most Recent: Last Vital Signs Temp 97.4 F 01/21/21 10:56 Pulse 68 01/21/21 10:56 Resp 16 01/21/21 10:56 BP 119/71 01/21/21 10:56 Pulse Ox 98 01/21/21 10:56 Weight - Most Recent: 145 lb 4.554 oz I&O - Last 24 Hours: Intake & Output 01/20/21 01/21/21 01/21/21 22:59 06:59 14:59 Intake Total 3016 951 Output Total 300 Balance 2716 951 Lab Results Last 24 Hours: Laboratory Results - last 24 hr 01/17/21 01/21/21 01/21/21 Range/Units 08:30 04:41 04:41 WBC 6.5 (4.5-11.0) K/uL RBC 3.41 L (4.30-5.90) M/uL Hgb 10.1 L (12.0-15.0) g/dL Hct 31.4 L (40.0-54.0) % MCV 92 (80-98) fL MCH 30 (27-31) pg MCHC 32 (32-36) % Plt Count 215 (150-400) K/uL Sodium 141 (140-148) mmol/L Potassium 3.5 L (3.6-5.2) mmol/L Chloride 104 (100-108) mmol/L Carbon Dioxide 30 (21-32) mmol/L Anion Gap 10.5 (5.0-14.0) mmol/L BUN 12 (7-18) mg/dL Creatinine 0.8 (0.8-1.3) mg/dL Est Cr Clr Drug Dosing 63.68 mL/min Estimated GFR (MDRD) > 60 (>60) Glucose 130 H (74-106) mg/dL Calcium 7.9 L (8.5-10.1) mg/dL Phosphorus 2.3 L (2.5-4.9) mg/dL Total Bilirubin 0.6 (0.2-1.0) mg/dL AST 85 H (15-37) U/L ALT 265 H (12-78) U/L Alkaline Phosphatase 66 (46-116) U/L Total Protein 6.2 L (6.4-8.2) g/dL Albumin 2.2 L (3.4-5.0) g/dL Globulin 4.0 H (2.3-3.5) g/dL Albumin/Globulin Ratio 0.6 L (1.2-2.2) Crossmatch See Detail Med Orders - Current: Current Medications Acetaminophen (Acetaminophen 325 Mg Tab) 650 mg PO Q4H PRN PRN Reason: Pain (Mild 1-3)/fever Magnesium Sulfate (Magnesium Sulfate In Water 2 Gm/50 Ml) 2 gm in 50 mls @ 12.5 mls/hr IV Q6H [facility]ARGARITA Stop: 01/23/21 07:59 Last Admin: 01/21/21 09:19 Dose: 12.5 mls/hr Documented by: Levothyroxine Sodium (Levothyroxine 88 Mcg Tab) 88 mcg PO ACBREAKFAST MARGARITA Last Admin: 01/21/21 09:19 Dose: 88 mcg Documented by: Loperamide HCl (Loperamide 2 Mg Cap) 2 mg PO Q4H PRN PRN Reason: Diarrhea Lorazepam (Lorazepam 2 Mg/Ml Sdv) 0.5 mg IVPUSH Q4H PRN PRN Reason: Nausea/Vomiting Magnesium Hydroxide (Magnesium Hydroxide 400 Mg/5 Ml Susp 30 Ml Cup) 30 ml PO Q12H PRN PRN Reason: Constipation Last Admin: 01/20/21 09:03 Dose: 30 ml Documented by: Melatonin (Melatonin 3 Mg Tab) 9 mg PO BEDTIME PRN PRN Reason: Sleep Ondansetron HCl (Ondansetron 4 Mg/2 Ml Sdv) 4 mg IV Q6H PRN PRN Reason: Nausea/Vomiting Ondansetron HCl (Ondansetron 4 Mg Tab.Dis) 4 mg PO Q6H PRN PRN Reason: Nausea able to take PO Oxycodone HCl (Oxycodone 5 Mg Tab) 5 - 10 mg PO Q4H PRN PRN Reason: Pain Potassium Phosphate (Potassium Phosphates 3 Mmole/Ml 15 Ml Sdv) 25 mmole .XX Q4H [facility] Stop: 01/21/21 17:01 Last Admin: 01/21/21 13:06 Dose: 25 mmole Documented by: Prednisone (Prednisone 5 Mg Tab) 7.5 mg PO DAILY [facility] Last Admin: 01/21/21 09:19 Dose: 7.5 mg Documented by: Senna/Docusate Sodium (Docusate Sodium/Sennosides 50-8.6 Mg Tab) 1 tab PO BID PRN PRN Reason: Constipation Sodium Chloride (Sodium Chloride 0.9% 10 Ml Syringe) 10 ml FLUSH ASDIRECTED PRN PRN Reason: Keep Vein Open Last Admin: 01/17/21 09:48 Dose: 10 ml Documented by: Discontinued Medications Fentanyl (Fentanyl 100 Mcg/2 Ml Sdv) Confirm Administered Dose 100 mcg .ROUTE .STK-MED ONE Stop: 01/19/21 07:09 Sodium Chloride (Normal Saline) 1,000 mls @ 200 mls/hr IV ASDIRECTED [facility] Last Admin: 01/17/21 09:47 Dose: 200 mls/hr Documented by: Sodium Chloride (Normal Saline) 1,000 mls @ 125 mls/hr IV ASDIRECTED [facility] Last Admin: 01/18/21 09:22 Dose: 125 mls/hr Documented by: Potassium Cl/Dextrose/Lact Ringer's (D5 Lr With 20 Meq Kcl) 1,000 mls @ 100 mls/hr IV ASDIRECTED [facility] Last Admin: 01/20/21 08:45 Dose: 100 mls/hr Documented by: Cefoxitin Sodium 2 gm/ Sodium (Chloride) 50 mls @ 100 mls/hr IV ONETIME ONE Stop: 01/19/21 10:29 Last Admin: 01/19/21 09:20 Dose: 100 mls/hr Documented by: Potassium Phosphate 20 mmole/ (Sodium Chloride) 256.6667 mls @ 85 mls/hr IV Q3H [facility] Stop: 01/20/21 18:59 Last Admin: 01/20/21 16:42 Dose: 85 mls/hr Documented by: Methylprednisolone Sodium Succinate (Methylprednisolone Sodium Succinate 40 Mg/1 Ml Sdv) 40 mg IVPUSH DAILY [facility] Stop: 01/20/21 09:01 Last Admin: 01/20/21 08:40 Dose: 40 mg Documented by: Midazolam HCl (Midazolam 1 Mg/Ml 2 Ml Sdv) Confirm Administered Dose 2 mg .ROUTE .STK-MED ONE Stop: 01/19/21 07:09 Propofol (Propofol 200 Mg/20 Ml Sdv) Confirm Administered Dose 200 mg .ROUTE .STK-MED ONE Stop: 01/19/21 07:09 Propofol (Propofol 200 Mg/20 Ml Sdv) Confirm Administered Dose 200 mg .ROUTE .STK-MED ONE Stop: 01/19/21 10:02 - Exam General: Alert, Oriented, Cooperative, No Acute Distress Lungs: Clear to Auscultation, Normal Respiratory Effort Cardiovascular: Regular Rate, Regular Rhythm, No Murmurs GI/Abdominal Exam: Soft, Non-Tender, No Organomegaly, No Distention Extremities: Non-Tender, No Pedal Edema - Patient Data Lab Results Last 24 hrs: Laboratory Results - last 24 hr 01/17/21 01/21/21 01/21/21 Range/Units 08:30 04:41 04:41 WBC 6.5 (4.5-11.0) K/uL RBC 3.41 L (4.30-5.90) M/uL Hgb 10.1 L (12.0-15.0) g/dL Hct 31.4 L (40.0-54.0) % MCV 92 (80-98) fL MCH 30 (27-31) pg MCHC 32 (32-36) % Plt Count 215 (150-400) K/uL Sodium 141 (140-148) mmol/L Potassium 3.5 L (3.6-5.2) mmol/L Chloride 104 (100-108) mmol/L Carbon Dioxide 30 (21-32) mmol/L Anion Gap 10.5 (5.0-14.0) mmol/L BUN 12 (7-18) mg/dL Creatinine 0.8 (0.8-1.3) mg/dL Est Cr Clr Drug Dosing 63.68 mL/min Estimated GFR (MDRD) > 60 (>60) Glucose 130 H (74-106) mg/dL Calcium 7.9 L (8.5-10.1) mg/dL Phosphorus 2.3 L (2.5-4.9) mg/dL Total Bilirubin 0.6 (0.2-1.0) mg/dL AST 85 H (15-37) U/L ALT 265 H (12-78) U/L Alkaline Phosphatase 66 (46-116) U/L Total Protein 6.2 L (6.4-8.2) g/dL Albumin 2.2 L (3.4-5.0) g/dL Globulin 4.0 H (2.3-3.5) g/dL Albumin/Globulin Ratio 0.6 L (1.2-2.2) Crossmatch See Detail Result Diagrams: 01/21/21 04:41 01/21/21 04:41 Sepsis Event Note - Evaluation Sepsis Screening Result: No Definite Risk - Focused Exam Vital Signs: Vital Signs Temp Pulse Resp BP BP Pulse Ox 01/21/21 10:56 97.4 F 68 16 119/71 98 01/21/21 07:00 98.6 F 88 16 115/74 96 01/21/21 03:00 97.3 F 76 18 134/65 97 - Problem List Review Problem List Initiated/Reviewed/Updated: Yes - My Orders Last 24 Hours: My Active Orders 01/20/21 16:29 Convert IV to Saline Lock [OM.PC] Routine - Plan Plan:: ASSESSMENT AND PLAN - Acute kidney injury-resolved -Saline lock IV Acute oropharyngeal bleeding-complicated by anemia due to blood loss. 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 Currently followed by [facility] oncology for palliative chemotherapy. Status post PEG feeding tube placement by Dr. Garcia -Surgical follow-up per Dr. Garcia -Outpatient follow-up with oncology versus transition to hospice Maintenance issues - -DVT prophylaxis-mechanical with recent bleeding -GI prophylaxis-not indicated -Nutrition-patient unable to take anything by mouth at this time CODE STATUS -DNR/DNI Disposition -I anticipate discharge home after the hospital stay Primary care physician -Dr. Anjali Fortune
[2021-01-21] MEDS ORDERED: Loperamide 1 MG/7.5 ML 7.5 ML UD Cup PO PRN (14:49)
[2021-01-22] MEDS: Magnesium Sulfate/Water 2 GM/50 ML BAG IV SCH (03:50)
[2021-01-22] MEDS: predniSONE 5 MG Tab PO SCH (09:17)
[2021-01-22] MEDS: Levothyroxine 88 MCG Tab PO SCH (09:18)
--- NOTE | 2021-01-22 10:17 | DISCH ---
ADMISSION DIAGNOSES: 1. Anemia. 2. Dehydration. 3. Acute kidney injury. 4. 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 DISCHARGE DIAGNOSES: 1. Percutaneous endoscopic gastrostomy placement. Date of procedure: 01/19/2021. Surgeon: Clay Garcia MD. 2. Inability to maintain adequate oral intake. HISTORY: Valentino Wan is a pleasant 85-year-old male, who presented to the emergency room on 01/17/2021 with weakness, poor oral intake, orthostatic dizziness. He did have some melena in the stools, and after evaluation, his hemoglobin was 7 and it was [address] A CT scan showed maxillofacial area revealed significant invasion of parotid tumor. Creatinine of 2.5. He was admitted to the hospital. After preoperative evaluation and discussion of possible risks and possible complications, he wished to proceed with surgical procedure for obtaining some nutrition. At this time, he is unable to eat or drink anything orally due to the tumor. HOSPITAL COURSE: Valentino had his surgery, placement of the percutaneous endoscopic gastrostomy tube on 01/19/2021. He had no operative complications. On postoperative day #1, he started the gastrostomy tube feedings which were gradually increased to his maintenance dose and he tolerated it without any problems. He was able to be discharged to home with home health care on 01/22/2021. PHYSICAL EXAMINATION: GENERAL: Valentino is a pleasant 85-year-old male. He is alert and orientated. VITAL SIGNS: Height 5 feet 10 inches, weight is 142 pounds, BMI is 20. TPR is 96.6, 86, 16, blood pressure is 108/61. HEENT: Negative. NECK: Reveals a parotid tumor. HEART: Regular rate and rhythm. LUNGS: Clear. ABDOMEN: Gastrostomy tube in place. Dressing dry and intact. EXTREMITIES: Without peripheral edema. DISPOSITION: Discharged to home with home health care. Stable condition. MEDICATIONS: No change. He is to go home with prednisone 7.5 mg p.o. daily and Synthroid 88 mcg p.o. before breakfast. He can take Tylenol p.r.n. pain. APPOINTMENTS: 1. With Arlyn Blunt PA-C, Oncology, 01/27/2021 at 10 a.m. 2. Abbie Esparza PA-C, 01/27/2021 at 9 a.m. 3. Anjali Fortune MD. Appointment to be made in 2 weeks. DIET: As tolerated. ACTIVITY: As tolerated. DISCHARGE INSTRUCTIONS: May shower. Wound incision care: Keep operative site clean and dry. Change dressing around G-tube as needed. Keep area clean and dry. Notify provider if any fever, increased pain, swelling, redness, drainage, nausea, or vomiting, SPECIAL INSTRUCTION: Use incentive spirometer 10 times every hour while awake. See separate sheet for directions of gastrostomy tube feedings. HOME FEEDING SCHEDULE: Jevity 1.2 at night continuous infusion at 95 mL per hour for 10 hours overnight and 2 bolus feedings during the day of 1 carton 237 mL. Suggested time lunch and supper. Flush with 50 mL of water before and after each bolus and continuous feed. Total of 6 cartons of Jevity 1.2, which provides 1710 calories, 79 g protein, and 1146 mL of water. Labs to be ordered per [facility] and drawn by home health care. /[id number]
[2021-01-22 11:46] VITALS: BP 123/75; PULSE 51
--- NOTE | 2021-01-26 13:11 | OR ---
DATE OF PROCEDURE: 01/19/2021 SURGEON: Clay Garcia MD PREOPERATIVE DIAGNOSIS: Inability to maintain adequate oral intake. POSTOPERATIVE DIAGNOSIS: Inability to maintain adequate oral intake. OPERATIVE PROCEDURE: Percutaneous endoscopic gastrostomy tube placement ([id number]). ANESTHESIA: Local plus IV sedation. INDICATIONS FOR PROCEDURE: This is an 85-year-old male with regionally advanced recurrent parotid carcinoma, making it at this point very difficult to maintain adequate oral intake. The plan is to proceed with a percutaneous gastrostomy tube placement. Potential risks including bleeding, infection, injury to underlying viscera, problems with the tube dislodging or migrating, as well as possibility of cardiopulmonary, septic, or hemorrhagic complications leading to were discussed, and the patient wishes to proceed. DETAILS OF PROCEDURE: The patient was taken to the operating room, placed in a supine position with the chest and abdomen upright roughly 30 degrees. The abdomen was then prepped and draped after IV sedation was administered, and the gastroscope was then placed through the mouth and down through the esophagus into the stomach. The stomach was then inflated and the light could be then visualized in the abdominal wall just below the medial aspect of the costal margin. In that area, the skin was then anesthetized with 1% lidocaine and the needle then passed into the stomach with air being evacuated and then guidewire was placed and the guidewire was then grasped with a biopsy forceps and pulled back out through the mouth. As the gastroscope was withdrawn, a 1 cm incision at the catheter entrance site in the abdominal wall was then made and the gastrostomy tube then affixed to the wire and pulled down through the mouth and up against the abdominal wall without difficulty. The catheter was sutured to skin with some 2-0 nylon stitch and dressing applied. Tube was placed to dependent drainage. The upper endoscope was then passed once again which confirmed adequate location of the tube and the procedure concluded. The patient was taken to the recovery room in satisfactory condition. Clay Garcia MD /[id number]
== END 2021-01-22 12:33 | disposition home health service (06) | DRG 147 ==
LOC: JP.ED 07:47 → JP.MS 14:21
PROVIDERS: ADMIT Internal Medicine; ATTEND Hospitalist
PROC: 30233N1 Transfusion of Nonautologous Red Blood Cells into Peripheral Vein, Percutaneous Approach (ICD-10-PCS; principal; 2021-01-17)
PROC: 0DH63UZ Insertion of Feeding Device into Stomach, Percutaneous Approach (ICD-10-PCS; 2021-01-19)
DX: D64.9 Anemia, unspecified (principal); C07 Malignant neoplasm of parotid gland; D11.0 Benign neoplasm of parotid gland; N17.9 Acute kidney failure, unspecified; D62 Acute posthemorrhagic anemia; J39.2 Other diseases of pharynx; E86.0 Dehydration; J84.10 Pulmonary fibrosis, unspecified; Z66 Do not resuscitate; K59.09 Other constipation; I95.1 Orthostatic hypotension; Z79.890 Hormone replacement therapy; Z79.52 Long term (current) use of systemic steroids; Z98.49 Cataract extraction status, unspecified eye; Z85.46 Personal history of malignant neoplasm of prostate
CPT/HCPCS: 36415; 70486; 80053; 85025; 85610; 85730; 86850; 86900; 86901; 86920 ×2; 86922 ×2; 99285; J7030; 36430; 80048; 81001; 83735; 84100; 85027; 97161-GP; 97535-GP; A9270-GY; J0694; J2250; J2704; J2920; J3010; J3475; J3480; J3490; J7050; J7512; P9016

== ENCOUNTER 2021-01-23 09:07 | Emergency (ER) | payer MEDICARE, BC ==
[2021-01-23 09:41] VITALS: BP 117/61; PULSE 101
--- NOTE | 2021-01-23 10:00 | EDM.PDOC ---
ED HPI GENERAL MEDICAL PROBLEM - General Chief Complaint: ENT Problem Stated Complaint: BLEEDING FROM MOUTH Time Seen by Provider: 01/23/21 09:48 Source of Information: Reports: Patient, Family, Old Records, RN Notes Reviewed History Limitations: Reports: No Limitations - History of Present Illness INITIAL COMMENTS - FREE TEXT/NARRATIVE: 85-year-old gentleman presents emergency department today concerned about ongoing oropharyngeal bleeding. He does have a known history of complex parotid gland tumor stage III status post resection and radiation therapy over many years. He was recently omitted the hospital for ongoing bleeding and placement of PEG tube for continued weight loss. 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 He states he had no bleeding yesterday during discharge but bleeding started last night he has been swallowing a lot of blood has had several clots removed. His biggest concern he was like to see his hemoglobin checked - Related Data Allergies Allergy/AdvReac Type Severity Reaction Status Date / Time No Known Allergies Allergy Verified 01/23/21 09:32 Home Meds: Home Meds Levothyroxine [Synthroid] 88 mcg PO ACBREAKFAST 12/15/16 [History] predniSONE [Prednisone] 7.5 mg PO DAILY 12/15/16 [History] Past Medical History HEENT History: Reports: Cataract Respiratory History: Reports: Pulmonary Fibrosis Gastrointestinal History: Reports: Chronic Constipation Genitourinary History: Reports: Other (See Below) Other Genitourinary History: Prostate cancer Musculoskeletal History: Reports: Fracture Endocrine/Metabolic History: Reports: Other (See Below) Other Endocrine/Metabolic History: parotid surgery 1970 & 2001 Hematologic History: Reports: Other (See Below) 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 Oncologic (Cancer) History: Reports: Prostate, Other (See Below) - Past Surgical History Head Surgeries/Procedures: Reports: None HEENT Surgical History: Reports: Cataract Surgery, Other (See Below) Other HEENT Surgeries/Procedures: radiation to throat Respiratory Surgical History: Reports: None GI Surgical History: Reports: Hernia, Inguinal Male Surgical History: Reports: Prostatectomy Endocrine Surgical History: Reports: None Musculoskeletal Surgical History: Reports: None Oncologic Surgical History: Reports: None Dermatological Surgical History: Reports: None Social & Family History - Family History Family Medical History: No Pertinent Family History - Caffeine Use Caffeine Use: Reports: Coffee, Tea ED ROS ENT - Review of Systems Review Of Systems: See Below Constitutional: Reports: No Symptoms HEENT: Reports: Other (Oropharyngeal bleeding). Denies: Throat Pain Respiratory: Reports: No Symptoms Cardiovascular: Reports: No Symptoms ED EXAM, ENT - Physical Exam Exam: See Below Text/Narrative:: Mouth mucosa is moist and pink he does have significant trismus difficult to get a good evaluation of posterior pharynx but are not appreciate any active bleeding at this time Exam Limited By: No Limitations General Appearance: Alert, WD/WN, No Apparent Distress Respiratory/Chest: No Respiratory Distress Course - Vital Signs Last Recorded V/S: Last Vital Signs Temp 98.2 F 01/23/21 09:40 Pulse 101 H 01/23/21 09:40 Resp 15 01/23/21 09:40 BP 117/61 01/23/21 09:40 Pulse Ox 100 01/23/21 09:40 - Orders/Labs/Meds Labs: Laboratory Tests 01/23/21 Range/Units 09:56 WBC 10.5 (4.5-11.0) K/uL RBC 3.32 L (4.30-5.90) M/uL Hgb 9.9 L (12.0-15.0) g/dL Hct 31.3 L (40.0-54.0) % MCV 94 (80-98) fL MCH 30 (27-31) pg MCHC 32 (32-36) % Plt Count 268 (150-400) K/uL Add Manual Diff Yes Neutrophils % (Manual) 62 (36-66) % Band Neutrophils % 1 L (5-11) % Lymphocytes % (Manual) 24 (24-44) % Monocytes % (Manual) 13 H (2-6) % Nucleated RBCs 1 Departure - Departure Time of Disposition: 11:11 Disposition: Home, Self-Care 01 Condition: Fair Clinical Impression: Anemia Qualifiers: Anemia type: other cause - Discharge Information Referrals: Anjali Fortune MD [Primary Care Provider] - Forms: ED Department Discharge Additional Instructions: Please follow-up with your head and neck surgeon at the [facility], call return to the emergency department worsening of symptoms Sepsis Event Note (ED) - Evaluation Sepsis Screening Result: No Definite Risk - Focused Exam Vital Signs: Vital Signs Temp Pulse Resp BP Pulse Ox 01/23/21 09:40 98.2 F 101 H 15 117/61 100 - Assessment/Plan Plan: Assessment Acuity = acute Site and laterality = oropharyngeal bleeding Etiology = unknown probably related to parotid tumor and treatment Manifestations = none Location of injury = Home Lab values = hemoglobin is at 9.9 Plan I did offer further evaluation and treatment such as a trial of TTX he declined he is going to set up a follow-up appointment at the [facility] This note was dictated using [employer] voice recognition software please call with any questions on syntax or grammar.
== END 2021-01-23 11:17 | disposition home or self-care (01) ==
LOC: JP.ED 09:07
DX: D64.9 Anemia, unspecified (principal)
CPT/HCPCS: 36415; 85025; 99283

== ENCOUNTER 2021-01-24 06:15 | Emergency (ER) | payer MEDICARE, BC ==
[2021-01-24 06:27] VITALS: BP 145/72; PULSE 89
[2021-01-24] MEDS ORDERED: Sodium Chloride 0.9% 10 ML Syringe FLUSH PRN (06:36)
--- NOTE | 2021-01-24 06:48 | EDM.PDOC ---
<Amrik Mendoza G - Last Filed: 01/24/21 06:42> ED HPI GENERAL MEDICAL PROBLEM - General Chief Complaint: ENT Problem Stated Complaint: BLEEDING OF THE MOUTH Time Seen by Provider: 01/24/21 06:30 Source of Information: Reports: Patient, Old Records History Limitations: Reports: No Limitations - History of Present Illness INITIAL COMMENTS - FREE TEXT/NARRATIVE: 85 yo male has been bleeding heavily on and off for over a week. He has been transfused for the resulting anemia. He has a signficant trismus so it is difficult to see his throat. Until more recently he had not had blood from his nose so it was not clear where he was bleeding from. He spent several days in the hospital recently and did not bleed during his admission. He has been bleeding on and off last night since about 10 pm, arrives this AM via EMS. He is not anticoagulated. He had a normal CT of maxillo-facia area recently. Has a hx of a parotid tumor. Onset: Gradual Onset Date: 01/23/21 Duration: Hour(s):, Intermittent Location: Reports: Other (blood from the mouth only, not nose) Quality: Reports: Other (pain not reported) Severity: Moderate Improves with: Reports: Other (unsure) Worsens with: Reports: Other (unsure) Context: Reports: Other (See HPI) Associated Symptoms: Reports: No Other Symptoms. Denies: Fever/Chills Treatments DIRECTOR CUSTOMER: Reports: See EMS Report, Other (see below) (none) - Related Data Allergies Allergy/AdvReac Type Severity Reaction Status Date / Time No Known Allergies Allergy Verified 01/24/21 06:19 Home Meds: Home Meds Levothyroxine [Synthroid] 88 mcg PO ACBREAKFAST 12/15/16 [History] predniSONE [Prednisone] 7.5 mg PO DAILY 12/15/16 [History] Past Medical History HEENT History: Reports: Cataract Respiratory History: Reports: Pulmonary Fibrosis Gastrointestinal History: Reports: Chronic Constipation Genitourinary History: Reports: Other (See Below) Other Genitourinary History: Prostate cancer Musculoskeletal History: Reports: Fracture Endocrine/Metabolic History: Reports: Other (See Below) Other Endocrine/Metabolic History: parotid surgery 1970 & 2001 Hematologic History: Reports: Other (See Below) 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 Oncologic (Cancer) History: Reports: Prostate, Other (See Below) - Infectious Disease History Infectious Disease History: Reports: Chicken Pox, Measles, Mumps - Past Surgical History Head Surgeries/Procedures: Reports: None HEENT Surgical History: Reports: Cataract Surgery, Other (See Below) Other HEENT Surgeries/Procedures: radiation to throat Respiratory Surgical History: Reports: None GI Surgical History: Reports: Hernia, Inguinal Male Surgical History: Reports: Prostatectomy Endocrine Surgical History: Reports: None Musculoskeletal Surgical History: Reports: None Oncologic Surgical History: Reports: None Dermatological Surgical History: Reports: None Social & Family History - Family History Family Medical History: No Pertinent Family History - Tobacco Use Tobacco Use Status *Q: Never Tobacco User - Caffeine Use Caffeine Use: Reports: Coffee - Alcohol Use Days Per Week of Alcohol Use: 7 Number of Drinks Per Day: 1 Total Drinks Per Week: 7 - Recreational Drug Use Recreational Drug Use: No ED ROS ENT - Review of Systems Review Of Systems: See Below Constitutional: Reports: No Symptoms HEENT: Reports: Other (blood from mouth) Respiratory: Reports: No Symptoms Cardiovascular: Reports: No Symptoms GI/Abdominal: Reports: No Symptoms : Reports: No Symptoms Musculoskeletal: Reports: No Symptoms Skin: Reports: No Symptoms Neurological: Reports: No Symptoms ED EXAM, ENT - Physical Exam Exam: See Below Exam Limited By: No Limitations General Appearance: Alert, WD/WN, No Apparent Distress Eye Exam: Bilateral Eye: Normal Inspection Ears: Normal External Exam, Normal Canal, Hearing Grossly Normal, Normal TMs Nose: Normal Inspection, No Blood Mouth/Throat: Normal Lips, Other (dark clots on back of tongue, not able to see oropharynx due to his inability to open his mouth. ) Head: Atraumatic, Normocephalic Neck: Normal Inspection Respiratory/Chest: No Respiratory Distress, Lungs Clear, Normal Breath Sounds, No Accessory Muscle Use Cardiovascular: Regular Rate, Rhythm, No Edema GI/Abdominal: Normal Bowel Sounds, Soft, Non-Tender, No Distention Back: Normal Inspection. No: CVA Tenderness (R), CVA Tenderness (L) Extremities: Normal Inspection, Normal Range of Motion, Non-Tender, No Pedal Edema Neurological: Alert, Oriented, CN II-XII Intact, Normal Cognition, No Motor/Sensory Deficits Psychiatric: Normal Affect, Normal Mood Skin: Warm, Dry, Intact, Normal Color, No Rash Departure - Departure Disposition: Home, Self-Care 01 Clinical Impression: Primary parotid gland malignancy, Anemia due to blood loss, acute - Discharge Information Instructions: Oral Cancer Referrals: Anjali Fortune MD [Primary Care Provider] - Forms: ED Department Discharge Additional Instructions: Continue with your regular medications, please time contact your head neck surgeon at the [facility], return to the emergency department at any time Sepsis Event Note (ED) - Evaluation Sepsis Screening Result: No Definite Risk <OfficerJohn - Last Filed: 01/24/21 07:58> Course - Vital Signs Last Recorded V/S: Last Vital Signs Temp 97.6 F 01/24/21 06:20 Pulse 89 01/24/21 06:20 Resp 16 01/24/21 06:20 BP 145/72 H 01/24/21 06:20 Pulse Ox 97 01/24/21 06:20 - Orders/Labs/Meds Orders: Active Orders 24 hr Category Date Time Status Sodium Chloride 0.9% [Saline Flush] Med 01/24/21 06:36 Active 10 ml FLUSH ASDIRECTED PRN Saline Lock Insert [OM.PC] Routine Oth 01/24/21 06:36 Ordered Medication Orders Sodium Chloride (Sodium Chloride 0.9% 10 Ml Syringe) 10 ml FLUSH ASDIRECTED PRN PRN Reason: Keep Vein Open Last Admin: 01/24/21 07:03 Dose: 10 ml Documented by: MARY Labs: Laboratory Tests 01/24/21 01/24/21 Range/Units 06:50 06:50 WBC 10.6 (4.5-11.0) K/uL RBC 3.30 L (4.30-5.90) M/uL Hgb 9.6 L (12.0-15.0) g/dL Hct 30.9 L (40.0-54.0) % MCV 94 (80-98) fL MCH 29 (27-31) pg MCHC 31 L (32-36) % Plt Count 301 (150-400) K/uL Sodium 138 L (140-148) mmol/L Potassium 4.1 (3.6-5.2) mmol/L Chloride 100 (100-108) mmol/L Carbon Dioxide 29 (21-32) mmol/L Anion Gap 13.1 (5.0-14.0) mmol/L BUN 17 (7-18) mg/dL Creatinine 0.9 (0.8-1.3) mg/dL Est Cr Clr Drug Dosing 54.88 mL/min Estimated GFR (MDRD) > 60 (>60) Glucose 112 H (74-106) mg/dL Calcium 8.1 L (8.5-10.1) mg/dL Meds: Medications Generic Name Dose Route Start Last Admin Trade Name Freq PRN Reason Stop Dose Admin Sodium Chloride 10 ml 01/24/21 06:36 01/24/21 07:03 Sodium Chloride 0.9% 10 Ml Syringe FLUSH 10 ml ASDIRECTED PRN Administration Keep Vein Open Departure - Departure Time of Disposition: 07:57 Condition: Fair Sepsis Event Note (ED) - Focused Exam Vital Signs: Vital Signs Temp Pulse Resp BP Pulse Ox 01/24/21 06:20 97.6 F 89 16 145/72 H 97 - Assessment/Plan Plan: Assessment Oropharyngeal bleeding complicated with parotid tumor stage III Plan I did offer him tTTX for a posterior nasal balloon he declined both he is trying to get in with his head neck surgeon at [facility] next week
== END 2021-01-24 08:16 | disposition home or self-care (01) ==
LOC: JP.ED 06:15
DX: D62 Acute posthemorrhagic anemia (principal); C07 Malignant neoplasm of parotid gland; Z79.899 Other long term (current) drug therapy
CPT/HCPCS: 36415; 80048; 85027; 99284

== ENCOUNTER 2021-02-05 07:52 | Emergency (ER) | payer MEDICARE, BC ==
[2021-02-05 08:01] VITALS: BP 93/56; PULSE 95
--- NOTE | 2021-02-05 08:32 | EDM.PDOC ---
ED HPI GENERAL MEDICAL PROBLEM - General Chief Complaint: General Stated Complaint: BLEEDING Time Seen by Provider: 02/05/21 08:20 Source of Information: Reports: Patient, EMS, Old Records, RN History Limitations: Reports: No Limitations - History of Present Illness INITIAL COMMENTS - FREE TEXT/NARRATIVE: 85 yo male with a pHx of a L parotid tumor returns via EMS after bleeding from his mouth this morning at home. He had just returned to bed after a trip to the bathroom. EMS responded and noted the bleeding to be mostly resolved by the time of their arrival. He had an ENT consult within the week that did not reveal a source for nor any sign of bleeding. He has been here several times in the past month or two for this problem requiring a transfusion at least once. His ENT machine sign writer feels that the bleeding is likely due to his tumor invading an artery and that one of these episodes he likely will bleed out. He is scheduled later today to enter Hospice and that appt to discuss is scheduled for late morning. Valentino is not currently having pain. He is interested in being transfused if he needs it, he is not complaining of weakness or dyspnea now. Most recent clinic hgb reported to be 8.7. 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: Reports: Other (see below) (IV initiated by EMS) - Related Data Allergies Allergy/AdvReac Type Severity Reaction Status Date / Time No Known Allergies Allergy Verified 01/24/21 06:19 Home Meds: Home Meds Levothyroxine [Synthroid] 88 mcg PO ACBREAKFAST 12/15/16 [History] predniSONE [Prednisone] 7.5 mg PO DAILY 12/15/16 [History] Past Medical History HEENT History: Reports: Cataract Respiratory History: Reports: Pulmonary Fibrosis Gastrointestinal History: Reports: Chronic Constipation Genitourinary History: Reports: Other (See Below) Other Genitourinary History: Prostate cancer Musculoskeletal History: Reports: Fracture Endocrine/Metabolic History: Reports: Other (See Below) Other Endocrine/Metabolic History: parotid surgery 1970 & 2001 Hematologic History: Reports: Other (See Below) 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 Oncologic (Cancer) History: Reports: Prostate, Other (See Below) - Infectious Disease History Infectious Disease History: Reports: Chicken Pox, Measles, Mumps - Past Surgical History Head Surgeries/Procedures: Reports: None HEENT Surgical History: Reports: Cataract Surgery, Other (See Below) Other HEENT Surgeries/Procedures: radiation to throat Respiratory Surgical History: Reports: None GI Surgical History: Reports: Hernia, Inguinal Male Surgical History: Reports: Prostatectomy Endocrine Surgical History: Reports: None Musculoskeletal Surgical History: Reports: None Oncologic Surgical History: Reports: None Dermatological Surgical History: Reports: None Social & Family History - Family History Family Medical History: No Pertinent Family History - Tobacco Use Tobacco Use Status *Q: Never Tobacco User - Caffeine Use Caffeine Use: Reports: Coffee ED ROS GENERAL - Review of Systems Review Of Systems: See Below Constitutional: Reports: No Symptoms HEENT: Reports: Nosebleed (small amt from L nares), Other (oral hemorrage, now resolved) Respiratory: Reports: No Symptoms Cardiovascular: Reports: No Symptoms GI/Abdominal: Reports: No Symptoms : Reports: No Symptoms Musculoskeletal: Reports: No Symptoms Skin: Reports: No Symptoms Neurological: Reports: No Symptoms ED EXAM, GENERAL - Physical Exam Exam: See Below Exam Limited By: No Limitations General Appearance: Alert, WD/WN, No Apparent Distress Eye Exam: Bilateral Eye: PERRL, Other (pale conjunctivas) Ears: Normal External Exam, Normal Canal, Hearing Grossly Normal, Normal TMs Ear Exam: Bilateral Ear: Auricle Normal, Canal Normal, TM normal Nose: Normal Inspection, No Blood Throat/Mouth: Normal Inspection, Normal Lips, Normal Oropharynx, Normal Voice, N o Airway Compromise, Other (only able to open his mouth a small amt, not new) Neck: Normal Inspection Respiratory/Chest: No Respiratory Distress, Lungs Clear, Normal Breath Sounds, No Accessory Muscle Use Cardiovascular: Regular Rate, Rhythm, No Edema GI/Abdominal: Soft, Non-Tender, No Distention Extremities: Normal Inspection, Normal Range of Motion, Non-Tender, No Pedal Edema Neurological: Alert, Oriented, CN II-XII Intact, Normal Cognition, No Motor/Sensory Deficits Psychiatric: Normal Affect, Normal Mood Course - Vital Signs Last Recorded V/S: Last Vital Signs Temp 36.2 C 02/05/21 08:14 Pulse 95 02/05/21 08:14 Resp 16 02/05/21 08:14 BP 93/56 L 02/05/21 08:14 Pulse Ox 98 02/05/21 08:14 - Orders/Labs/Meds Orders: Active Orders 24 hr Category Date Time Status Lactated Ringers [Ringers, Lactated] 1,000 ml Med 02/05/21 09:17 Active IV BOLUS Medication Orders Lactated Ringer's (Ringers, Lactated) 1,000 mls @ 1,000 mls/hr IV BOLUS ONE Stop: 02/05/21 10:16 Last Admin: 02/05/21 09:25 Dose: 1,000 mls/hr Documented by: PEGGY Labs: Laboratory Tests 02/05/21 Range/Units 08:38 WBC 9.9 (4.5-11.0) K/uL RBC 2.57 L (4.30-5.90) M/uL Hgb 7.6 L D (12.0-15.0) g/dL Hct 24.6 L (40.0-54.0) % MCV 96 (80-98) fL MCH 30 (27-31) pg MCHC 31 L (32-36) % Plt Count 277 (150-400) K/uL Meds: Medications Generic Name Dose Route Start Last Admin Trade Name Josee PRN Reason Stop Dose Admin Lactated Ringer's 1,000 mls @ 1,000 mls/hr 02/05/21 09:17 02/05/21 09:25 Ringers, Lactated IV 02/05/21 10:16 1,000 mls/hr BOLUS ONE Administration - Re-Assessments/Exams Free Text/Narrative Re-Assessment/Exam: 02/05/21 09:58 BP in the mid 120's systolic after 500 ml IV LR, able to walk independently without issue. No new bleeding while here. Will discharge to home to keep Hospice appt. Departure - Departure Time of Disposition: 09:59 Disposition: Home, Self-Care 01 Condition: Fair Clinical Impression: Oropharyngeal bleeding Anemia Qualifiers: Anemia type: unspecified type Qualified Code(s): D64.9 - Anemia, unspecified - Discharge Information *PRESCRIPTION DRUG MONITORING PROGRAM REVIEWED*: Not Applicable *COPY OF PRESCRIPTION DRUG MONITORING REPORT IN PATIENT ABDI: Not Applicable Referrals: Anjali Fortune MD [Primary Care Provider] - Forms: ED Department Discharge Additional Instructions: Return as needed. Continue present cares. Sepsis Event Note (ED) - Evaluation Sepsis Screening Result: No Definite Risk - Focused Exam Vital Signs: Vital Signs Temp Pulse Resp BP Pulse Ox 02/05/21 08:14 36.2 C 95 16 93/56 L 98 02/05/21 07:59 36.2 C 95 16 93/56 L 98 - My Orders Last 24 Hours: My Active Orders 02/05/21 09:17 Lactated Ringers [Ringers, Lactated] 1,000 ml IV BOLUS - Assessment/Plan Last 24 Hours: My Active Orders 02/05/21 09:17 Lactated Ringers [Ringers, Lactated] 1,000 ml IV BOLUS
[2021-02-05] MEDS ORDERED: Lactated Ringers 1,000 ML IV ONE (09:17)
== END 2021-02-05 10:05 | disposition home or self-care (01) ==
LOC: JP.ED 07:52
DX: K13.79 Other lesions of oral mucosa (principal); D64.9 Anemia, unspecified; Z79.899 Other long term (current) drug therapy
CPT/HCPCS: 36415; 85027; 99284; J7120